=== PATIENT | male | born 1995 | race Caucasian/White ===

== ENCOUNTER → 2023-07-27 | Outpatient (CLI) | payer BC, SELFPAY ==
[2023-07-27 07:30] LABS: Bacteria 0 SEEN /hpf (None Seen); Mucous, Urine 0 SEEN /hpf (<or=2+); Red Blood Cells-Urine 0 SEEN /hpf (0-5); Squamous Epithelial Cells - UA 0 SEEN /hpf (0-5); White Blood Cells 0 SEEN /hpf (0-5)
[2023-07-27 08:30] LABS: Color, Urine Yellow (Yellow); Glucose, Dipstick Normal (Normal); Ketone-Dipstick Negative (Negative); Leukocyte Esterase-Dipstick Negative /ul (Negative); Nitrite-Dipstick Negative (Negative); Occult Blood-Urine Negative /ul (Negative); Protein-Dipstick Negative (Negative); Urine Bilirubin Dipstick Negative (Negative); Urine Clarity Clear (Clear); Urine Urobilinogen Normal (Normal)
[2023-07-27 08:38] LABS: Absolute Lymphocyte Count 2.84 X10^3/uL (0.83-4.51); Absolute Neutrophil Count 3.9 X10^3/uL (2.0-7.7); Basophil# 0.04 X10^3/uL; Basophil% 0.5 % (0-1); Eosinophil# 0.13 X10^3/uL; Eosinophils% 1.7 % (0-5); Hematocrit 45.6 % (40-54); Hemoglobin 14.8 g/dL (13.0-16.5); Lymphocyte # 2.84 X10^3/ul (0.83-4.51); Lymphocyte % 37.7 % (19-41); Mean Corp Hgb Conc 32.5 g/dL (32-36); Mean Corpuscular Hgb 28.4 pg (27.0-32.0); Mean Corpuscular Volume 87.5 fL (80-94); Mean Platelet Vol. 9.8 fl (6.2-12.0); Monocyte# 0.62 X10^3/uL; Monocyte% 8.2 % (0-10); NRBC Flagged by Analyzer 0 % (0-5); Neutrophil # 3.86 X10^3/uL (2.7-7.7); Neutrophil % 51.2 % (47-70); Platelet Count 262 K/mm3 (150-450); RBC Distribution Width CV 13.2 % (11.6-14.6); RBC Distribution Width SD 42.5 fl (35.1-43.9); Red Blood Count 5.21 M/mm3 (4.6-6.2); White Blood Count 7.5 K/mm3 (4.4-11.0)
[2023-07-27 09:23] LABS: ALB/GLOB Ratio 0.7 RATIO (0.9-2.4); AST(SGOT) 30 U/L (15-37); Alanine Aminotransfer ALT/SGPT 75 U/L (16-61); Albumin, Serum 3.3 g/dL (3.2-5.0); Alkaline Phosphatase 54 U/L (45-117); Anion Gap 4 (5-15); BUN 12 mg/dL (7-18); BUN/Creat Ratio 14.5 RATIO (10-20); Calcium,Total 8.9 mg/dL (8.5-10.1); Chloride 106 mmol/L (98-107); Cholesterol 154 mg/dL (200); Creatinine, Serum 0.82 mg/dL (0.70-1.30); EST Glomerular Filtration Rate 117 mL/min (>60); Est Glom Filt Rate - Afr Amer 142 mL/min (>60); Globulin 4.5 g/dL (2.2-4.2); Glucose 96 mg/dL (74-106); High Density Lipoprotein 36 mg/dL; Potassium 3.9 mmol/L (3.5-5.1); Protein, Total 7.8 g/dL (6.4-8.2); Sodium Level 137 mmol/L (136-145); T4 Free Direct 0.74 ng/dL (0.76-1.46); Thyroid Stim Hormone (TSH) 2.67 uIU/mL (0.358-3.74); Triglycerides 122 mg/dL; Very Low Density Lipoprotein 24 mg/dL (5-40)
[2023-07-27 11:30] LABS: Microalbumin,Random Urine 17.3 mg/L (NO RANGE EST.); Microalbumin:Creatinine Ratio 10.8 mg/g CRE (<30 mg/g CRE)
[2023-07-27 12:15] LABS: Hemoglobin A1c 4.9 % (3.8-5.6)
== END | disposition home or self-care (01) ==
LOC: LAB 07:27
PROVIDERS: PCP Nurse Practitioner; Referring Provider Nurse Practitioner; Visit Provider Nurse Practitioner
DX: I10 Essential (primary) hypertension (principal); E66.9 Obesity, unspecified
CPT/HCPCS: 36415; 80053; 80061; 81001; 82043; 82570; 83036; 84439; 84443; 85025

== ENCOUNTER → 2023-08-24 | Outpatient (CLI) | payer BC, SELFPAY ==
[2023-08-24 16:22] LABS: Anion Gap 5 (5-15); BUN 8 mg/dL (7-18); Calcium,Total 9.3 mg/dL (8.5-10.1); Chloride 109 mmol/L (98-107); Creatinine, Serum 0.88 mg/dL (0.70-1.30); EST Glomerular Filtration Rate 108 mL/min (>60); Est Glom Filt Rate - Afr Amer 131 mL/min (>60); Glucose 89 mg/dL (74-106); Potassium 3.7 mmol/L (3.5-5.1); Sodium Level 138 mmol/L (136-145)
== END | disposition home or self-care (01) ==
LOC: BIMLAB 11:01
PROVIDERS: PCP Nurse Practitioner; Referring Provider Nurse Practitioner; Visit Provider Nurse Practitioner
DX: I10 Essential (primary) hypertension (principal)
CPT/HCPCS: 36415; 80048

== ENCOUNTER → 2024-05-29 | Outpatient (CLI) | payer BC, SELFPAY ==
[2024-05-29 12:50] LABS: Absolute Lymphocyte Count 2.21 X10^3/uL (0.83-4.51); Absolute Neutrophil Count 4.6 X10^3/uL (2.0-7.7); Basophil# 0.02 X10^3/uL; Basophil% 0.3 % (0-1); Eosinophil# 0.13 X10^3/uL; Eosinophils% 1.7 % (0-5); Hematocrit 46.7 % (40-54); Hemoglobin 15.4 g/dL (13.0-16.5); Lymphocyte # 2.21 X10^3/ul (0.83-4.51); Mean Corpuscular Hgb 28.7 pg (27.0-32.0); Mean Corpuscular Volume 87.1 fL (80-94); Mean Platelet Vol. 9.9 fl (6.2-12.0); Monocyte# 0.62 X10^3/uL; Monocyte% 8.1 % (0-10); NRBC Flagged by Analyzer 0 % (0-5); Neutrophil # 4.59 X10^3/uL (2.7-7.7); Neutrophil % 60.2 % (47-70); Platelet Count 253 K/mm3 (150-450); RBC Distribution Width CV 13.2 % (11.6-14.6); RBC Distribution Width SD 41.7 fl (35.1-43.9); Red Blood Count 5.36 M/mm3 (4.6-6.2); White Blood Count 7.6 K/mm3 (4.4-11.0)
[2024-05-29 13:11] LABS: ALB/GLOB Ratio 1.1 RATIO (0.9-2.4); AST(SGOT) 30 U/L (<=37); Alanine Aminotransfer ALT/SGPT 51 U/L (<=46); Albumin, Serum 4.1 g/dL (3.5-5.0); Alkaline Phosphatase 61 U/L (40-129); Anion Gap 11 (5-15); BUN 11 mg/dL (4-19); BUN/Creat Ratio 13.7 RATIO (10-20); Calcium,Total 9.5 mg/dL (7.6-11.0); Carbon Dioxide 25.3 mmol/L (21.0-32.0); Chloride 104 mmol/L (98-108); Creatinine, Serum 0.79 mg/dL (0.70-1.20); EST Glomerular Filtration Rate 123 (>60); Globulin 3.8 g/dL (2.2-4.2); Glucose 93 mg/dL (70-99); Potassium 4.5 mmol/L (3.3-5.1); Protein, Total 7.9 g/dL (5.9-8.4); Sodium Level 140 mmol/L (133-145); Total Bilirubin 0.54 mg/dL (0.00-1.30)
[2024-05-29 13:56] LABS: Cholesterol 156 mg/dL (<=200); High Density Lipoprotein 41 mg/dL; Low Density Lipoprotein Calc. 98 mg/dL; Triglycerides 88 mg/dL; Very Low Density Lipoprotein 18 mg/dL (5-40); cholesterol:hdl ratio screen 3.84
== END | disposition home or self-care (01) ==
LOC: BIMLAB 09:26
PROVIDERS: PCP Internal Medicine; Referring Provider Internal Medicine; Visit Provider Internal Medicine
DX: I10 Essential (primary) hypertension (principal)
CPT/HCPCS: 36415; 80053; 80061; 84439; 84443; 85025

== ENCOUNTER → 2024-06-05 | Outpatient (CLI) | payer BC, SELFPAY | END | disposition home or self-care (01) | LOC: SL 10:17 | PROVIDERS: PCP Internal Medicine; Referring Provider Internal Medicine; Visit Provider Internal Medicine | DX: R29.898 Other symptoms and signs involving the musculoskeletal system (principal); G47.10 Hypersomnia, unspecified | CPT/HCPCS: 95806 ==

== ENCOUNTER 2025-02-04 21:20 | Emergency (ER) | payer BC, SELFPAY ==
[2025-02-04 21:21] VITALS: BP 207/105; PULSE 104; RESP 16; TEMP 36.8; O2SAT 100; BMI 51.9
--- NOTE | 2025-02-04 21:39 | EX.ED.DYSGE1 ---
HPI History of Present Illness Chief Complaint: Complaint Informant: patient Onset/Context/Timing Onset: Today Context: Sudden Onset Timing: Continuous Quality: Sharp Location: Urethra and bladder Worsened by: Urination Relieved by: Nothing Narrative Narrative: Patient presents with hematuria and abdominal pain that began today. Patient states it began rather suddenly. Patient states he was urinating and sneezed. Patient states that when he sneezed he felt sharp pain in his suprapubic area. Patient states he noted blood in his urine after that. Patient states he passed a blood clot through his urethra. Patient admits to some dysuria. Patient denies any fevers or chills. Patient denies any nausea or vomiting. Patient denies any back pain. [facility] Medical History Hypertension Family history of ASCVD Chewing tobacco dependence Home Medications Medication Instructions Recorded Last Taken Type ipratropium bromide 21 mcg (0.03 2 spray intranasal BID-TID PRN 06/30/24 Unknown Rx %) nasal spray postnasal drainage #30 mL lisinopril 40 mg tablet 40 mg PO DAILY #30 tabs 09/11/24 Unknown Rx Allergy/AdvReac Type Severity Reaction Status Date / Time No Known Allergies Allergy Verified 02/04/25 21:23 Family History Aunt Anemia Asthma Arthritis History of blood clots Cancer breast, cervical. 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 pets and animals: No sexually active: Yes Smoking Status: Current every day smoker tobacco type: e-cigarettes Tobacco: How many years used: 12 Electronic Cigarette Use: with nicotine alcohol intake: current alcohol intake frequency: a few times a week substance use type: does not use caffeine: Yes (2-3) Type: coffee what type of physical activity do you participate in: walking frequency: daily seatbelt use: always do you feel safe at home: Yes ROS ROS ED Constitutional Constitutional ED: Denies chills or fever(s) Eyes Eyes: Denies blurry vision or change in vision ENT ENT ED: Denies rhinorrhea or sore throat Cardiovascular Cardiovascular: Denies chest pain or palpitations Respiratory/Chest Respiratory/Chest: Denies cough or dyspnea Gastrointestinal Gastrointestinal: Reports abdominal pain; Denies nausea or vomiting Genitourinary Genitourinary ED: Reports dysuria and hematuria Musculoskeletal Musculoskeletal: Denies back pain or neck pain Integumentary Denies abscess or rash Neurologic Neurologic: Denies headache(s) or weakness Allergic/Immunologic Allergic/Immunologic ED: Denies mouth swelling or urticaria EXAM Physical Exam Const Vital Signs: 02/04/25 21:21 02/04/25 23:21 Temperature 98.2 F Temperature Source Oral Pulse Rate 104 H 70 Respiratory Rate 16 14 Blood Pressure 207/105 H 151/84 H Blood Pressure Mean 139 106 Pulse Ox 100 98 Oxygen Delivery Method Room Air Room Air Positive well nourished and well developed Constitutional Narrative: BMI is 51.9 General Appearance ED: well developed and NAD HEENT Reports moist mucous membranes Neck supple and no JVD Resp normal respiratory effort and clear to auscultation bilaterally Cardio regular rate and regular rhythm GI non-distended Palpation: soft and tender suprapubic; Negative for guarding Neuro oriented x3, CN's II-XII intact bilaterally and no sensory deficits noted Sensorium / Orientation: alert Motor Exam: strength 5/5 throughout Psych mental status grossly normal MDM MDM MDM Narrative Medical decision making narrative: Differential diagnosis includes urinary tract infection, hemorrhagic cystitis, ureteral calculus, coagulopathy, and hypertensive urgency. CT scan of the abdomen and pelvis will be obtained to assess for ureteral calculus and pyelonephritis. CBC will be obtained to assess for leukocytosis and anemia. Basic metabolic profile will be obtained to assess for electrolyte abnormality and renal function. PT with INR and PTT will be obtained to assess for coagulopathy. Urinalysis will be obtained to assess for urinary tract infection and hematuria. Lab Data Attestation: I reviewed the patient's lab results. Lab results narrative: CBC was reviewed and was within normal limits. Basic metabolic profile was reviewed and was within normal limits. PT with INR and PTT was reviewed and was within normal limits. Urinalysis was reviewed. Occult blood was 250 with 50-100 red blood cells. Leukocyte Estrace was negative. There are 0-5 white blood cells and 0-5 epithelial cells. There is rare bacteria. Labs: Laboratory Results - last 24 hr 02/04/25 02/04/25 02/04/25 21:35 21:52 22:22 WBC 10.7 RBC 5.25 Hgb 15.3 Hct 45.3 MCV 86.3 MCH 29.1 MCHC 33.8 RDW Std Deviation 40.6 RDW Coeff of Samantha 13.0 Plt Count 277 MPV 9.9 Immature Gran % (Auto) 0.700 Neut % (Auto) 65.3 Lymph % (Auto) 24.9 [place] % (Auto) 7.5 Eos % (Auto) 1.2 Baso % (Auto) 0.4 Absolute Neuts (auto) 7.0 Absolute Lymphs (auto) 2.66 Nucleated RBC % 0 PT Cancelled 13.9 INR Cancelled 1.0 APTT Cancelled 29.1 Sodium 135 Potassium 4.3 Chloride 102 Carbon Dioxide 20.9 L Anion Gap 13 BUN 10 Creatinine 0.94 Estim Creat Clear Calc 183.20 Est GFR (MDRD) Non-Af 111 BUN/Creatinine Ratio 10.5 Glucose 92 Calcium 9.1 Urine Color Yellow Urine Clarity Clear Urine pH 6.0 Ur Specific Virgie 1.010 Urine Protein 30 H Urine Glucose (UA) Normal Urine Ketones Negative Urine Occult Blood 250 H Urine Nitrite Negative Urine Bilirubin Negative Urine Urobilinogen Normal Ur Leukocyte Esterase Negative Urine RBC 50-100 SEEN Urine WBC 0-5 SEEN Ur Squamous Epith Cells 0-5 SEEN Urine Bacteria RARE Urine Mucus 0 SEEN Radiography Diagnostic Testing: Clinical Impression(s) from Imaging Studies Abdomen/Pelvis CT 02/04/25 22:10 IMPRESSION: Urinary bladder minimal mural thickening. Advise clinical and laboratory correlation to exclude the possibility of cystitis. Mild colonic diverticulosis. No diverticulitis. Fatty hepatomegaly. Reading Location: [place] [id number] CT scan of the abdomen and pelvis was obtained. There is some urinary bladder mural thickening. There is mild colonic diverticulosis but there is no diverticulitis. There is hepatomegaly noted. This was interpreted by the radiologist. I also independently reviewed the images. I did not see any evidence of ureteral calculus or free air or free fluid. Treatment and Re-Evaluation :: Patient was given morphine and Zofran. Patient was feeling better on reevaluation. Patient's blood pressure improved to 151/84. Patient was advised of his findings. Patient was instructed to drink plenty of fluids. Patient was instructed to follow-up with his primary care physician in 5 to 7 days. Patient was also given number for urology for follow-up if his hematuria does not clear up. Patient was instructed to use Tylenol as needed for pain. Patient understood and was agreeable with the plan. All questions were answered. Discharge Plan Triage Chief Complaint: Complaint ED Provider: Pan Lay Dx/Rx/DC Orders Clinical Impression: Hematuria, Hypertension Instructions: ED Hematuria Prescriptions: No Action ipratropium bromide 21 mcg (0.03 %) spray,non-aerosol 2 spray intranasal BID-TID PRN (Reason: postnasal drainage) Qty: 30 0RF Rx Instructions: administer into each nostril lisinopril 40 mg tablet 40 mg PO DAILY Qty: 30 1RF Primary Care Provider: Lilly Cordero Referrals: Lilly Cordero MD [Primary Care Provider, Internal Medicine] - 5-7 Days Harry Srinivasan MD [Med Staff - Active Staff, Urology] - 3-5 Days if not improving Print Language: Bulgarian Disposition Disposition: Home, Self Care
[2025-02-04 21:53] LABS: Mucous, Urine 0 SEEN /hpf (<or=2+)
[2025-02-04 21:55] LABS: Color, Urine Yellow (Yellow); Glucose, Dipstick Normal (Normal); Ketone-Dipstick Negative (Negative); Leukocyte Esterase-Dipstick Negative /ul (Negative); Nitrite-Dipstick Negative (Negative); Occult Blood-Urine 250 /ul (Negative); Protein-Dipstick 30 mg/dl (Negative); Specific Gravity, Urine 1.010 (1.002-1.030); Urine Bilirubin Dipstick Negative (Negative)
[2025-02-04 21:57] LABS: Hematocrit 45.3 % (40-54); Hemoglobin 15.3 g/dL (13.0-16.5); Immature Granulocytes Count 0.070 X10^3/uL (0.0-0.0); Mean Corp Hgb Conc 33.8 g/dL (32-36); Mean Corpuscular Volume 86.3 fL (80-94); Mean Platelet Vol. 9.9 fl (6.2-12.0); NRBC Flagged by Analyzer 0 % (0-5); Platelet Count 277 K/mm3 (150-450); RBC Distribution Width CV 13.0 % (11.6-14.6); RBC Distribution Width SD 40.6 fl (35.1-43.9); Red Blood Count 5.25 M/mm3 (4.6-6.2); White Blood Count 10.7 K/mm3 (4.4-11.0)
--- OUTSIDE RECORDS SUMMARY | 2025-02-04 22:01 | XMS RPT_ITS | CCD ---
Author Organization [facility] Care Team Providers Care Highway Truck Driver Name Role Phone PHYSICIAN, NONE Primary Care Physician Unavailab delfina Sharp CREATIVE SERVICES PRODUCER-C, Lea Referring Provider Gil CHAO, Dr. Carr Attending Provider Gil CHAO, Dr. Carr Primary Care Provider [phone] Gil CHAO, Dr. Carr Referring Provider Elias Stringer Attending Provider NURSE, BIM Attending Provider Unavailable Marla Odonnell Attending Unavail able Ferullo, Lea Referring Unavailable Ferullo, Lea Primary Care Unavailable Gil, Lilly Primary Care Unavailable Gil, Lilly Attending Unavailable [place], Lilly Referring Unavailable [place], Lilly Attending Unavailable [place], Lilly Referring Unavailable Gil, Lilly Primary Care Unavailable Ferullo, Lea Referring Unavailable [place], Lilly Attending Unavailable [place], Lilly Referring Unavailable [place], Lilly Primary Care Unavailable Elias Stringer Attending Unavailable Gil, Lilly Attending Unavailable [place], Lilly Referring Unavailable [place], Lilly Primary Care Unavailable Gil, Lilly Attending Unavailable [place], Lilly Referring Unavailable [place], Lilly Primary Care Unavailable Ferullo, Lea Primary Care Unavailable Ferullo, Lea Attending Unavailable Ferullo, Lea Referring Unavailable Medications Current Medications Medication Drug Class(es) Dates Sig (Normalized) Sig (Original) hydroCHLOROthiazide 25 mg / lisinopril 20 mg oral tablet (1 source) Thiazide Diuretic, Angiotensin Converting Enzyme Inhibitor Start: 06-20-2021 take 1 tablet by mouth once daily hydrochlorothiaz mindy-lisinopril 25 mg-20 mg oral tablet Dose = 1 tab(s), Oral, Daily Start Date: 06/20/21 Status: Ordered Ipratropium [place] 21 mcg (0.03 %) spray,non-aerosol (2 sources) Start: 06-30-2024 Ipratropium [place] 21 mcg (0.03 %) spray,non-aeroso l Active 2 NMA INTRANASAL 2 to 3 times per day as needed for postnasal drainage June 30, 2024 12:00am administer into each nostril lisinopril 30 mg oral tablet (12 sources) Angiotensin Converting Enzyme Inhibitor Start: 08-24-2023 End: 05-29-2024 take 1 tablet by mouth once daily Lisinopril 30 mg tablet Active 30 mg PO DAILY May 29, 2024 9:11am Start: 07-20-2023 End: 08-24-2023 take 1 tablet by mouth once daily Lisinopril 20 mg tablet Discontinued 20 mg PO DAILY July 20, 2023 12:00am August 24, 2023 10:51am Completed/Discontinued Medications Medication Drug Class(es) Dates Sig (Normalized) Sig (Original) amoxicillin 875 mg oral tablet (4 sources) Penicillin-class Antibacterial Start: 12-18-2023 End: 12-28-2023 take 1 tablet by mouth every twelve hours Amoxicillin 875 mg tablet Discontinued 875 mg PO Q12H 08 01December 18, 2023 12:00am December 27, 2023 12:00am December 28, 2023 12:08am amoxicillin 875 mg / clavulanate 125 mg oral tablet (2 sources) Penicillin-class Antibacterial Start: 06-30-2024 End: 07-10-2024 Amoxicillin-Pot Clavulanate 875-125 mg tablet Discontinued 1 {tbl} PO Q12H 20 June 30, 2024 12:00am July 09, 2024 12:00am July 10, 2024 12:06am Problems Active Problems Problem Classification Problem Date Documented Da te Episodic/Chronic Administrative/social admission (8 sources) First encounter by subject; Translations: [Persons encountering health services in other specified circumstances] 05-29-2024 Episodic Essential hypertension (12 sources) Essential hypertension; Translations: [Essential (primary) hypertension] Onset: 06-20-2021 Chronic Other connective tissue disease (2 sources) Disease suspected; Translations: [Other symptoms and signs involving the nervous system] 05-29-2024 Episodic Other connective tissue disease (2 sources) Suspected respiratory disease; Translations: [Other symptoms and signs involving the nervous system] 05-29-2024 Episodic Other liver diseases (1 source) ALT (SGPT) level raised; Translations: [Elevated ALT measurement] 09-05-2024 Episodic Other nutritional; endocrine; and metabolic disorders (4 sources) Obesity; Translations: [Obesity, unspecified] 07-20-2023 Chronic Other nutritional; endocrine; and metabolic disorders (6 sources) Body mass index 40+ - severely obese; Translations: [Morbid (severe) obesity due to excess calories] 05-29-2024 Chronic Other upper respiratory infections (7 sources) Acute sinusitis; Translations: [Acute sinusitis, unspecified] Onset: 06-30-2024 05-24-2024 Episodic Otitis media and related conditions (4 sources) Acute bilateral otitis media ; Translations: [Otitis media, unspecified, bilateral] 05-24-2024 Episodic Residual codes; unclassified (2 sources) Obstructive sleep apnea syndrome; Translations: [Obstructive sleep apnea (adult) (pediatric)] 09-05-2024 Chronic Residual codes; unclassified (1 source) Hypersomnia, unspecified; Translations: [Hypersomnia, unspecified] Onset: 05-29-2024 Chronic Residual codes; unclassified (4 sources) FH: Atherosclerosis; Translations: [Family history of ischemic heart disease and other diseases of the circulatory system] 05-24-2024 Episodic Residual codes; unclassified (4 sources) Medication refused; Translations: [Immunization not carried out because of patient refusal] 05-29-2024 Episodic Residual codes; unclassified (6 sources) Electronic cigarette user; Translations: [Other specified health status] 05-29-2024 Episodic Substance-related disorders (4 sources) Tobacco dependence caused by chewing tobacco; Translations: [Nicotine dependence, chewing tobacco, uncomplicated] 05-29-2024 Chronic Past or Other Problems Problem Classification Problem Date Documented Date Episodic/Chronic Other connective tissue disease (1 source) Other symptoms and signs involving the musculoskeletal system; Translations: [Other symptoms and signs involving the musculoskeletal system] Onset: 06-14-2024 Episodic Other connective tissue disease (1 source) Other symptoms and signs involving the nervous system; Translations: [Other symptoms and signs involving the nervous system] Onset: 05-29-2024 Episodic Results Test Name Value Interpretation Reference Range Facility Office Visit Reporton 2024 Office Visit Report [facility] [place] [address] OFFICE VISIT Date of Service: 09/11/24 MR#: [id number] Acct: [id number] Patient: RUDY HOWELL Rep #: [id number] : 1995 Provider: SANDIP NURSE Age/Sex: 29/M Location: [facility] Status: Signed Intake Vital Signs 09/05/24 07:27 09/11/24 09:45 09/11/24 09:55 Height 5 ft 11 in Weight: 369 lb BMI 51.4 BP 148/94 H 152/102 H 144/96 H Blood Pressure Location Lt brachial Lt brachial Lt brachial Position Sitting Sitting Sitting Respiration 18 Pulse 100 Pulse Source Monitor Temp 97.7 F L Temp Source Temporal Pulse Oximetry (%) 98 Oxygen Delivery Method room air Intake Visit Reasons: BP CHECK Chief Complaint: face/ear pain, drainage, chills Allergies No Known Allergies Allergy (Verified 09/05/24 07:21) Nurse's Note: Pt sat for 5 minutes before being called back. Bp 152/102. Pt denies chest pain, palptations,headaches, SOB, or vision changes. Pt has not been taking at home but states he has been eating right and taking meds as prescribed. Pt sat for 5 more minutes upon recheck 144/96 Assessment and Plan Assessment and Plan (1) Hypertension: Status: Chronic Qualifiers: Hypertension type: primary hypertension Qualified Code(s): I10 - Essential (primary) hypertension Plan: Blood pressure remains high. Will increase lisinopril to 40mg daily. He was in agreement. 09/11/24 1213 Date Lilly Silvaignreji Signature: Date (if applicable) CC: [facility] Office Vis cordelia 09-04-2024 Internal Medicine Office Visit [facility] [address] [place] [address] [place] [address] OFFICE VISIT Date of Service: 09/05/24 MR#: [id number] Acct: [id number] Name: RUDY HOWELL Rep #: [id number] : 1995 Provider: Dr. Lilly grove MD Age/Sex: 29/M Location: [facility] [place] [facility] Status: Signed Intake Vital Signs 05/29/24 08:56 09/04/24 13:19 09/05/24 07:27 09/05/24 08:03 Height 5 ft 11 in 5 ft 11 in 5 ft 11 in Weight: 369 lb BMI 51.4 BP 148/94 H 166/102 H Blood Pressure Location Lt brachial Position Sitting Respiration 18 Pulse 100 Pulse Source Monitor Temp 97.7 F L Temp Source Temporal Pulse Oximetry (%) 98 Oxygen Delivery Method room air Intake Visit Reasons: CPAP FOLLOW UP Utility Mechanic Required: No Is patient in pain?: No Allergies No Known Allergies Allergy (Verified 09/05/24 07:21) Medications ???Medication ???Instructions ???Recorded ???Confirmed ???Type lisinopril 30 mg tablet 30 mg PO DAILY #90 tabs 05/29/24 0 09/05/24 Rx ipratropium bromide 21 mcg (0.03 2 spray intranasal BID-TID PRN 02/1309/05/24 Rx %) nasal spray postnasal drainage #30 mL Nurse's Note: Pt here for cpap compliance, pt states since getting it he is sleeping 8 hours on average and feels rested. Pt uncertain of settings but states he is getting the best sleep he has had in a long time. [facility] Medical History Chewing tobacco dependence Family history of ASCVD Surgical History No pertinent past surgical history Family History Aunt Anemia Asthma Arthritis History of blood clots Cancer breast, cervical. 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 He is up to date on his routine blood work. He is not due for any screening. He previously declined any immunizations. He does smoke e-cigarettes and doesn't want to quit at this time. He reports, however, that he continues to cut back. He does not need refills. He reports he is eating healthy and staying active. He doesn't check his blood pressure at home. He has been taking his medication as prescribed without problems. He does try to monitor his salt and caffeine intake. Since he was last seen, he completed a sleep study, which confirmed sleep apnea. He reports that he got his CPAP machine. He reports since using it, he has been getting the best sleep he has had in years. He denies any problems with wearing the mask, stating it did take a little time to get used to it. He does wear it all night. He has no questions or concerns at this time. ROS Const Constitutional: No body ache, chills, excessive sweating, fatigue, fever(s), frequent falls, headache(s), snoring, weakness, weight change, sleep problems or change in appetite Eyes Eyes: No blurry vision, change in vision, eye pain or Light sensitivity ENT ENT: No abnormal hearing, ear or mastoid pain, tinnitus, nasal congestion, headache(s), neck pain or sore throat Resp Respiratory: No cough, shortness of breath, snoring or wheezing Cardio Cardiology: No chest pain at rest, chest pain with exertion, excessive sweating, shortness of breath, dyspnea on exertion, lightheadedness, orthopnea, palpitations or other (no leg swelling) Gastro GI: No abdominal pain, change in bowel habits, constipation, cramping, diarrhea, nausea/dyspepsia or vomiting Genitourinary Male: No difficulty urinating, burning urination, painful urination, urinary incontinence or urinary frequency Musc Musculoskeletal: No abnormal gait, joint pain, back pain, limited range of motion, neck pain, numbness or tingling Skin Sk (more content not included)... [facility] Visit Reporton 0 06-30-2024 Urgent Care Visit Report [facility] [address] [place] [address] OFFICE VISIT Date of Service: 06/30/24 MR#: [id number] Acct: [id number] Name: RUDY HOWELL Rep #: [id number] : 1995 Provider: ADELINA Torres Age/Sex: 28/M Location: [facility] [place] Status: Signed Intake Vital Signs 05/29/24 08:56 06/30/24 16:54 Height 5 ft 11 in Weight: 366 lb BMI 51.0 BP 130/82 H 166/96 H Blood Pressure Location Lt brachial Lt brachial Position Sitting Sitting Respiration 14 17 Pulse 91 103 H Pulse Source Monitor NIBP Temp 98 F 99.0 F Temp Source Temporal Oral Pulse Oximetry (%) 99 96 Oxygen Delivery Method room air room air Intake Visit Reasons: SINUS PRESURE/BILAT EAR PAIN Chief Complaint: face/ear pain, drainage, chills Utility Mechanic Required: No Is patient in pain?: Yes Allergies No Known Allergies Allergy (Verified 06/30/24 16:55) Medications ???Medication ???Instructions ???Recorded ???Confirmed ???Type lisinopril 30 mg tablet 30 mg PO DAILY #90 tabs 05/29/24 0 06/30/24 Rx amoxicillin 875 mg-potassium 1 tab PO Q12H 10 days #20 tabs 02/1306/30/24 Rx clavulanate 125 mg tablet ipratropium bromide 21 mcg (0.03 2 spray intranasal BID-TID PRN 02/1306/30/24 Rx %) nasal spray postnasal drainage #30 mL Have you fallen in the past year?: No Nurse's Note: face/ear pain, drainage, chills x 5 days. denies fever, cough, BA PFSH Medical History (Updated 05/29/24 @ 09:[address] Lilly Cordero MD) Chewing tobacco dependence Family history of ASCVD Surgical History (Updated 05/29/24 @ 09:[address] Lilly Cordero MD) No pertinent past surgical history Family History (Updated 05/29/24 @ 09:[address] Lilly Cordero MD) Aunt Anemia Asthma Arthritis History of blood clots Cancer breast, cervical. Diabetes Hypertension Kidney disease Liver disease Osteoporosis Mother Arthritis History of blood clots Hypertension Diabetes Autoimmune disease Grandmother Cancer breast Myocardial infarction 60 Father Myocardial infarction, Onset Age: 50 x2 Grandfather Myocardial infarction Social History (Updated 05/29/24 @ 09:[address] 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 pets and animals: No sexually active: Yes Smoking Status: Current every day smoker tobacco type: e-cigarettes Tobacco: How many years used: 12 Electronic Cigarette Use: with nicotine alcohol intake: current alcohol intake frequency: a few times a week substance use type: does not use caffeine: Yes (2-3) Type: coffee what type of physical activity do you participate in: walking frequency: daily seatbelt use: always do you feel safe at home: Yes HPI HPI Chief Complaint: face/ear pain, drainage, chills Details: RUDY HOWELL, is a 28 M who presents to the office today for complaint of sinus congestion/pressure and pain as well as left ear pain. Patient states that sinus congestion and pressure have been ongoing for the past week with new onset of left ear pain last night. He denies fever, chills, sweats. No nausea, vomiting or diarrhea. No hemoptysis, shortness of breath or difficulty breathing. No loss of taste or smell. No other associated symptoms or alleviating/aggravatin g factors. ROS Const Constitutional: Positive for other (ROS negative x 6 except what is described above) Exam Const General: cooperative and healthy appearing [facility] Head: normal to inspection Ears: hearing grossly normal bilaterally, TM's normal bilaterally and EAC's normal Nose: nasal discharge purulent Face and sinus: sinus tenderness frontal and maxillary Mouth: oral mucosae normal Throat: abnormal tonsil bilaterally erythema and hypertrophy 1+ and postnasal drainage Resp Effort Inspection: normal respiratory effort Auscultation: Bilateral: Clear to Auscultation Cardio Palpation: normal PMI Rate: regular rate Rhythm: regular rhythm Neuro General: patient alert and CN's II-XI intact bilaterally Psych Appearance: grossly normal Mental Status: mental status grossly normal Coding Level of Care Code Off vis,new,level 3 Diagnoses Acute sinus infection J01.90 Assessment and Plan Assessment and Plan (1) Acute sinus infection: Status: Resolved Plan: Augmentin and Atrovent as prescribed today. Encouraged to get plenty of rest, drink lots of clear liquids, and use Tylenol or Ibuprofen (unless contraindicated) for fever and comfort. Patient also educated on other symptomatic management techniques. To be seen in 7-10 days if no improvement; sooner if worsening of symptoms. Patient advised of potential red flags and wh (more content not included)... [facility] Absolute lymphocyte countOrd ered By: Lilly Cordero on 05-29-2024 Lymphocytes Auto (Unsp spec) [#/Vol] 2.21 10*3/uL 0.83-4.51 [facility] Absolute neutrophil countOrd ered By: Lilly Cordero on 05-29-2024 Neutrophils (Bld) [#/Vol] 4.6 10*3/uL 2.0-7.7 [facility] Anion gap in Serum or Plasma Ordered By: Lilly Cordero on 05-29-2024 Anion gap [Moles/Vol] 11 mmol/L 5-15 [facility] Automated lymphocyte count a s percentage of total leukocytesOrdered By: Lilly Cordero on 05-29-2024 Lymphocytes/100 WBC Auto (Unsp spec) 29.0 % 19-41 [facility] BUN/creatinine ratioOrdered By: Lilly Cordero on 05-29-2024 Urea nitrogen/Creatinine [Mass ratio] 13.7 mg/mg 10-20 [facility] Basophil percentageOrdered B y: Lilly Cordero on 05-29-2024 Basophils/100 WBC (Bld) 0.3 % 0-1 [facility] Bilirubin, totalOrdered By: Lillyefrain Cordero on 05-29-2024 Bilirubin [Mass/Vol] 0.54 mg/dL 0.00-1.30 [facility] CBC W/Diff, Automatedon 05-20-2024 Absolute Lymph 2.21 X10 3/uL Normal 0.83-4.51 [facility] Comment on above: Performed By: #### L 500.4100, L500.4050, L501.9520, L506.0400, L100.0100 #### [facility] [address] [place], [address] Absolute Neut 4.6 X10 3/uL Normal 2.0-7.7 [facility] Comment on above: Performed By: #### L 500.4100, L500.4050, L501.9520, L506.0400, L100.0100 #### [facility] [address] [place], [address] Basophils/100 WBC (Bld) 0.3 % Normal 0-1 [facility] Comment on above: Performed By: #### L 500.4100, L500.4050, L501.9520, L506.0400, L100.0100 #### [facility] [address] [place], [address] Eosinophils/100 WBC (Bld) 1.7 % Normal 0-5 [facility] Comment on above: Performed By: #### L 500.4100, L500.4050, L501.9520, L506.0400, L100.0100 #### [facility] [address] [place], [address] Erythrocyte distribution width (RBC) [Ratio] 13.2 % Normal 11.6-14.6 [facility] Comment on above: Performed By: #### L 500.4100, L500.4050, L501.9520, L506.0400, L100.0100 #### [facility] [address] [place], [address] Hematocrit (Bld) [Volume fraction] 46.7 % Normal 40-54 [facility] Comment on above: Performed By: #### L 500.4100, L500.4050, L501.9520, L506.0400, L100.0100 #### [facility] [address] [place], [address] Hemoglobin (Bld) [Mass/Vol] 15.4 g/dL Normal 13.0-16.5 [facility] Comment on above: Performed By: #### L 500.4100, L500.4050, L501.9520, L506.0400, L100.0100 #### [facility] [address] [place], [address] IG% 0.700 Normal 0.0-0.9 [facility] Comment on above: Result Comment: IG% - Immature Granulocytes (promyelocytes, myelocytes and metamyelocytes) > 1% indicates that a LEFT SHIFT is Present. Performed By: #### L 500.4100, L500.4050, L501.9520, L506.0400, L100.0100 #### [facility] [address] [place], [address] Lymphocytes/100 WBC (Bld) 29.0 % Normal 19-41 [facility] Comment on above: Performed By: #### L 500.4100, L500.4050, L501.9520, L506.0400, L100.0100 #### [facility] [address] [place], [address] MCH (RBC) [Entitic mass] 28.7 pg Normal 27.0-32.0 [facility] Comment on above: Performed By: #### L 500.4100, L500.4050, L501.9520, L506.0400, L100.0100 #### [facility] [address] [place], [address] MCHC (RBC) [Mass/Vol] 33.0 g/dL Normal 32-36 [facility] Comment on above: Performed By: #### L 500.4100, L500.4050, L501.9520, L506.0400, L100.0100 #### [facility] [address] [place], [address] MCV (RBC) [Entitic vol] 87.1 fL Normal 80-94 [facility] Comment on above: Performed By: #### L 500.4100, L500.4050, L501.9520, L506.0400, L100.0100 #### [facility] [address] [place], [address] Monocytes/100 WBC (Bld) 8.1 % Normal 0-10 [facility] Comment on above: Performed By: #### L 500.4100, L500.4050, L501.9520, L506.0400, L100.0100 #### [facility] [address] [place], [address] Neutrophils/100 WBC (Bld) 60.2 % Normal 47-70 [facility] Comment on above: Performed By: #### L 500.4100, L500.4050, L501.9520, L506.0400, L100.0100 #### [facility] [address] [place], [address] Nucleated RBC (Bld) [#/Vol] 0 10*3/uL Normal 0-5 [facility] Comment on above: Performed By: #### L 500.4100, L500.4050, L501.9520, L506.0400, L100.0100 #### [facility] [address] [place], [address] Platelet mean volume (Bld) [Entitic vol] 9.9 fL Normal 6.2-12.0 [facility] Comment on above: Performed By: #### L 500.4100, L500.4050, L501.9520, L506.0400, L100.0100 #### [facility] [address] [place], [address] Platelets (Bld) [#/Vol] 253 10*3/uL Normal 150-450 [facility] Comment on above: Performed By: #### L 500.4100, L500.4050, L501.9520, L506.0400, L100.0100 #### [facility] [address] [place], [address] RBC (Bld) [#/Vol] 5.36 10*6/uL Normal 4.6-6.2 [facility] Comment on above: Performed By: #### L 500.4100, L500.4050, L501.9520, L506.0400, L100.0100 #### [facility] [address] [place], [address] RDW SD 41.7 fl Normal 35.1-43.9 [facility] Comment on above: Performed By: #### L 500.4100, L500.4050, L501.9520, L506.0400, L100.0100 #### [facility] [address] [place], [address] WBC (Bld) [#/Vol] 7.6 10*3/uL Normal 4.4-11.0 [facility] Comment on above: Performed By: #### L 500.4100, L500.4050, L501.9520, L506.0400, L100.0100 #### [facility] [address] [place], [address] Calculated very low density lipoprotein (VLDL) cholesterol measurementOrdered By: Lilly Cordero on 05-29-2024 Calculated very low density lipoprotein (VLDL) cholesterol measurement 18 mg/dL 5-40 [facility] VLDL Cholesterol 18 mg/dL 5-40 [facility] Carbon dioxide, total [Moles /volume] in Central venous bloodOrdered By: Lilly Cordero on 05-29-2024 CO2 [Moles/Vol] 25.3 mmol/L 21.0-32.0 [facility] Chloride assayOrdered By: Aditya Cordero on 05-29-2024 Chloride [Moles/Vol] 104 mmol/L 98-108 [facility] Comprehensive Metabolic Prof ilon 05-29-2024 Albumin [Mass/Vol] 4.1 g/dL Normal 3.5-5.0 [facility] Comment on above: Performed By: #### L 500.4100, L500.4050, L501.9520, L506.0400, L100.0100 #### [facility] [address] [place], [address] Albumin/Globulin [Mass ratio] 1.1 {ratio} Normal 0.9-2.4 [facility] Comment on above: Performed By: #### L 500.4100, L500.4050, L501.9520, L506.0400, L100.0100 #### [facility] [address] [place], [address] ALK PHOS 61 U/L Normal 40-129 [facility] Comment on above: Performed By: #### L 500.4100, L500.4050, L501.9520, L506.0400, L100.0100 #### [facility] [address] [place], [address] ALT [Catalytic activity/Vol] 51 U/L High <=46 [facility] Comment on above: Performed By: #### L 500.4100, L500.4050, L501.9520, L506.0400, L100.0100 #### [facility] [address] [place], [address] AST [Catalytic activity/Vol] 30 U/L Normal <=37 [facility] Comment on above: Performed By: #### L 500.4100, L500.4050, L501.9520, L506.0400, L100.0100 #### [facility] [address] [place], [address] Bilirubin [Mass/Vol] 0.54 mg/dL Normal 0.00-1.30 [facility] Comment on above: Performed By: #### L 500.4100, L500.4050, L501.9520, L506.0400, L100.0100 #### [facility] [address] [place], [address] BUN/CRE 13.7 RATIO Normal 10-20 [facility] Comment on above: Performed By: #### L 500.4100, L500.4050, L501.9520, L506.0400, L100.0100 #### [facility] [address] [place], [address] Calcium [Mass/Vol] 9.5 mg/dL Normal 7.6-11.0 [facility] Comment on above: Performed By: #### L 500.4100, L500.4050, L501.9520, L506.0400, L100.0100 #### [facility] [address] [place], [address] Chloride [Moles/Vol] 104 mmol/L Normal 98-108 [facility] Comment on above: Performed By: #### L 500.4100, L500.4050, L501.9520, L506.0400, L100.0100 #### [facility] [address] [place], [address] CO2 [Moles/Vol] 25.3 mmol/L Normal 21.0-32.0 [facility] Comment on above: Performed By: #### L 500.4100, L500.4050, L501.9520, L506.0400, L100.0100 #### [facility] [address] [place], [address] Creatinine [Mass/Vol] 0.79 mg/dL Normal 0.70-1.20 [facility] Comment on above: Performed By: #### L 500.4100, L500.4050, L501.9520, L506.0400, L100.0100 #### [facility] [address] [place], [address] GAP 11 Normal 5-15 [facility] Comment on above: Performed By: #### L 500.4100, L500.4050, L501.9520, L506.0400, L100.0100 #### [facility] [address] [place], [address] GFR/1.73 sq M.predicted among non-blacks MDRD (S/P/Bld) [Vol rate/Area] 123 mL/min/{1.73_m2} Normal >60 [facility] Comment on above: Result Comment: mL/m in/1.73m2 CKD-EPI Creatinine Equation (2020) Performed By: #### L 500.4100, L500.4050, L501.9520, L506.0400, L100.0100 #### [facility] [address] [place], [address] Globulin (S) [Mass/Vol] 3.8 g/dL Normal 2.2-4.2 [facility] Comment on above: Performed By: #### L 500.4100, L500.4050, L501.9520, L506.0400, L100.0100 #### [facility] [address] [place], [address] Glucose [Mass/Vol] 93 mg/dL Normal 70-99 [facility] Comment on above: Performed By: #### L 500.4100, L500.4050, L501.9520, L506.0400, L100.0100 #### [facility] [address] [place], [address] Potassium [Moles/Vol] 4.5 mmol/L Normal 3.3-5.1 [facility] Comment on above: Performed By: #### L 500.4100, L500.4050, L501.9520, L506.0400, L100.0100 #### [facility] [address] [place], [address] Sodium [Moles/Vol] 140 mmol/L Normal 133-145 [facility] Comment on above: Performed By: #### L 500.4100, L500.4050, L501.9520, L506.0400, L100.0100 #### [facility] [address] [place], [address] T PROT 7.9 g/dL Normal 5.9-8.4 [facility] Comment on above: Performed By: #### L 500.4100, L500.4050, L501.9520, L506.0400, L100.0100 #### [facility] [address] [place], [address] Urea nitrogen [Mass/Vol] 11 mg/dL Normal 4-19 [facility] Comment on above: Performed By: #### L 500.4100, L500.4050, L501.9520, L506.0400, L100.0100 #### [facility] [address] [place], [address] Eosinophil percentageOrdered By: Lilly Cordero on 05-29-2024 Eosinophils/100 WBC (Bld) 1.7 % 0-5 [facility] Erythrocyte distribution wid th ratioOrdered By: Lilly Cordero on 05-29-2024 Erythrocyte distribution width (RBC) [Ratio] 13.2 % 11.6-14.6 [facility] Erythrocyte distribution wid th standard deviationOrdered By: Lilly Cordero on 05-29-2024 Erythrocyte distribution width (RBC) [Entitic vol] 41.7 fL 35.1-43.9 [facility] Erythrocyte distribution width (RBC) [Ratio] 41.7 fl 35.1-43.9 [facility] GFR/1.73 sq M.predicted sammie g non-blacks MDRD (S/P/Bld) [Vol rate/Area]Ordered By: Lilly Cordero on 05-29-2024 Estimated GFR (MDRD) Non-Af Amer 123 >60 [facility] Comment on above: mL/min/1.73m2 CKD-EP I Creatinine Equation (2020) Glomerular filtration rate ( GFR) estimation/1.73 sq m using serum, plasma, or whole bOrdered By: Lilly Cordero on 05-29-2024 GFR/1.73 sq M.predicted among non-blacks MDRD (S/P/Bld) [Vol rate/Area] 123 mL/min/{1.73_m2} >60 [facility] Comment on above: mL/min/1.73m2 CKD-EP I Creatinine Equation (2020) Hematocrit Auto (Bld) [Volum e fraction]Ordered By: Lilly Cordero on 05-29-2024 Hematocrit (Bld) [Volume fraction] 46.7 % 40-54 [facility] Hemoglobin measurementOrdere d By: Lilly Cordero on 05-29-2024 Hemoglobin (Bld) [Mass/Vol] 15.4 g/dL 13.0-16.5 [facility] Immature granulocytes/100 WB C Auto (Bld)Ordered By: iLlly Cordero on 05-29-2024 Immature granulocytes/100 WBC (Bld) 0.700 % 0.0-0.9 [place] [facility] Comment on above: IG% - Immature Granu locytes (promyelocytes, myelocytes and metamyelocytes) > 1% indicates that a LEFT SHIFT is Present. LDL calc ser/plasOrdered By: Lilly Codrero on 05-29-2024 Cholesterol in LDL [Mass/Vol] 98 mg/dL [facility] Comment on above: Skssxhiedl=708-679 m g/dL & Higher Orwa=830 mg/dL or greater LDL Cholesterol, Calculated 98 mg/dL [facility] Comment on above: Myezkjxepa=769-097 m g/dL & Higher Tvde=256 mg/dL or greater Laboratory - Chemistry and C hemistry - challengeOrdered By: Lilly Cordero on 05-29-2024 AST [Catalytic activity/Vol] 30 U/L <38 [facility] Lipid Profileon 05-29-2024 CHOL:HDL 3.84 Normal [facility] Comment on above: Performed By: #### L 500.4100, L500.4050, L501.9520, L506.0400, L100.0100 #### [facility] [address] [place], [address] Cholesterol [Mass/Vol] 156 mg/dL Normal <=200 [facility] Comment on above: Result Comment: Chol esterol level, Desirable <200 mg/dL Borderline high cholesterol 200-239 mg/dL High cholesterol >=240 mg/dL Recommendations of the NCEP Adult Treatment Panel for the following risk-cutoff thresholds for the [place] population. Performed By: #### L 500.4100, L500.4050, L501.9520, L506.0400, L100.0100 #### [facility] [address] [place], [address] Cholesterol in HDL [Mass/Vol] 41 mg/dL Normal [facility] Comment on above: Result Comment: Gretchen onal Cholesterol Education Program (NCEP) guidelines: <40 mg/dL: Low HDL-cholesterol (major risk factor for CHD) >= 60 mg/dL: High HDL-cholesterol (negative risk factor for CHD) HDL-cholesterol is affected by a number of factors, e.g. smoking, exercise, hormones, sex and age. Performed By: #### L 500.4100, L500.4050, L501.9520, L506.0400, L100.0100 #### [facility] [address] [place], [address] Cholesterol in LDL [Mass/Vol] 98 mg/dL Normal [facility] Comment on above: Result Comment: Bord pmmdak=795-283 mg/dL Higher Utwd=862 mg/dL or greater Performed By: #### L 500.4100, L500.4050, L501.9520, L506.0400, L100.0100 #### [facility] [address] [place], [address] Cholesterol in VLDL [Mass/Vol] 18 mg/dL Normal 5-40 [facility] Comment on above: Performed By: #### L 500.4100, L500.4050, L501.9520, L506.0400, L100.0100 #### [facility] [address] [place], [address] Triglyceride [Mass/Vol] 88 mg/dL Normal [facility] Comment on above: Result Comment: The drugs N-Acetylcysteine and Metamizole may falsely depress this assay. Normal range: <150 mg/dL Borderline High: 150-199 mg/dL High: 200-499 mg/dL Very High: >500 mg/dL Performed By: #### L 500.4100, L500.4050, L501.9520, L506.0400, L100.0100 #### [facility] [address] [place], [address] Lymphocytes Auto (Unsp spec) [#/Vol]Ordered By: Lilly Cordero on 05-29-2024 Lymphocytes (Bld) [#/Vol] 2.21 10*3/uL 0.83-4.51 [facility] Lymphocytes/100 WBC Auto (Un sp spec)Ordered By: Lilly Cordero on 05-29-2024 Lymphocytes/100 WBC (Bld) 29.0 % 19-41 [facility] MCV (mean corpuscular volume ) determinationOrdered By: Lilly Cordero on 05-29-2024 MCV (RBC) [Entitic vol] 87.1 fL 80-94 [facility] Mean corpuscular hemoglobin (MCH) determinationOrdered By: Lilly Cordero on 05-29-2024 MCH (RBC) [Entitic mass] 28.7 pg 27.0-32.0 [facility] Mean corpuscular hemoglobin concentration (MCHC) determinationOrdered By: Lilly Cordero on 05-29-2024 MCHC (RBC) [Mass/Vol] 33.0 g/dL 32-36 [facility] Mean platelet volume determi nationOrdered By: Lilly Cordero on 05-29-2024 Platelet mean volume (Bld) [Entitic vol] 9.9 fL 6.2-12.0 [facility] Monocyte percentageOrdered B y: Lilly Cordero on 05-29-2024 Monocytes/100 WBC (Bld) 8.1 % 0-10 [facility] Neutrophil percentageOrdered By: Lilly Cordero on 05-29-2024 Neutrophils/100 WBC (Bld) 60.2 % 47-70 [facility] Nucleated red blood cell per centageOrdered By: Lilly Cordero on 05-29-2024 Nucleated RBC/100 WBC (Bld) [Ratio] 0 % 0-5 [facility] Platelet countOrdered By: Aditya Cordero on 05-29-2024 Platelets (Bld) [#/Vol] 253 10*3/uL 150-450 [facility] Potassium (Unsp spec) [Mass/ Vol]Ordered By: Lilly oCrdero on 05-29-2024 Potassium [Moles/Vol] 4.5 mmol/L 3.3-5.1 [facility] Potassium measurement (mass/ volume)Ordered By: Lilly Cordero on 05-29-2024 Potassium (Unsp spec) [Mass/Vol] 4.5 mmol/L 3.3-5.1 [facility] RBC Auto (Bld) [#/Vol]Ordere d By: Lilly Cordero on 05-29-2024 RBC (Bld) [#/Vol] 5.36 10*6/uL 4.6-6.2 [facility] Screening total cholesterol/ high density lipoprotein (HDL) cholesterol ratioOrdered By: Lilly Cordero on 05-29-2024 Cholesterol.total/Choles terol in HDL [Mass ratio] 3.84 {ratio} [facility] Serum creatinine measurement (mass/volume)Ordered By: Lilly Cordero on 05-29-2024 Creatinine [Mass/Vol] 0.79 mg/dL 0.70-1.20 [facility] Serum globulin measurementOr dered By: Lilly Cordero on 05-29-2024 Globulin (S) [Mass/Vol] 3.8 g/dL 2.2-4.2 [facility] Serum glucose measurement (m ass/volume)Ordered By: Lilly Cordero on 05-29-2024 Glucose [Mass/Vol] 93 mg/dL 70-99 [facility] Serum or plasma alanine miller otransferase (ALT) measurementOrdered By: Lilly Cordero on 05-29-2024 ALT [Catalytic activity/Vol] 51 U/L High <47 [facility] Serum or plasma albumin cynthia urement (mass/volume)Ordered By: Lilly Cordero on 05-29-2024 Albumin [Mass/Vol] 4.1 g/dL 3.5-5.0 [facility] Serum or plasma albumin/glob ulin mass ratioOrdered By: Lilly Cordero on 05-29-2024 Albumin/Globulin [Mass ratio] 1.1 {ratio} 0.9-2.4 [facility] Serum or plasma alkaline talita sphatase measurementOrdered By: Lilly Cordero on 05-29-2024 ALP [Catalytic activity/Vol] 61 U/L 40-129 [facility] Serum or plasma calcium cynthia urement (mass/volume)Ordered By: Lilly Cordero on 05-29-2024 Calcium [Mass/Vol] 9.5 mg/dL 7.6-11.0 [facility] Serum or plasma cholesterol in HDL measurement (mass/volume)Ordered By: Lilly Cordero on 05-29-2024 Cholesterol in HDL [Mass/Vol] 41 mg/dL >40 [facility] Comment on above: National Cholesterol Education Program (NCEP) guidelines:<40 mg/dL: Low HDL-cholesterol (major risk factor for CHD)>= 60 mg/dL: High HDL-cholesterol (negative risk factor for CHD)HDL-cholesterol is affected by a number of factors, e.g. smoking, exercise, hormones, sex and age. Serum or plasma cholesterol measurement (mass/volume)Ordered By: Lilly Cordero on 05-29-2024 Cholesterol [Mass/Vol] 156 mg/dL <201 [facility] Comment on above: Cholesterol level, D esirable <200 mg/dLBorderline high cholesterol 200-239 mg/dLHigh cholesterol >=240 mg/dLRecommendations of the NCEP Adult Treatment Panel for the following risk-cutoff thresholds for the [place] population. Serum or plasma urea nitroge n measurement (mass/volume)Ordered By: Lilly Cordero on 05-29-2024 Urea nitrogen [Mass/Vol] 11 mg/dL 4-19 [facility] Sodium levelOrdered By: Merrick Cordero on 05-29-2024 Sodium [Moles/Vol] 140 mmol/L 133-145 [facility] T4 Free Directon 05-29-2024 T4 FREE DIRECT 0.80 ng/dL Normal 0.76-1.46 [facility] Comment on above: Performed By: #### L 500.4100, L500.4050, L501.9520, L506.0400, L100.0100 #### [facility] [address] [place], [place] [address] [place], [address] T4 freeOrdered By: Lilly lucas on 05-29-2024 Free T4 [Mass/Vol] 0.80 ng/dL 0.76-1.46 [facility] TSH DL <= 0.005 mIU/L QnOrde red By: Lilly Cordero on 05-29-2024 Thyroid Stimulating Hormone (TSH) 1.910 uIU/mL 0.300-4.200 [facility] TSH Qn 1.910 uIU/mL 0.300-4.200 [facility] Thyroid Stim Hormone (TSH)on 05-29-2024 TSH 1.910 uIU/mL Normal 0.300-4.200 [facility] Comment on above: Performed By: #### L 500.4100, L500.4050, L501.9520, L506.0400, L100.0100 #### [facility] [address] [place], [address] Total proteinOrdered By: Yandel Cordero on 05-29-2024 Protein [Mass/Vol] 7.9 g/dL 5.9-8.4 [facility] Triglycerides measurementOrd ered By: Lilly Cordero on 05-29-2024 Triglyceride [Mass/Vol] 88 mg/dL <199 [facility] Comment on above: The drugs N-Acetylcy steine and Metamizole may falsely depress this assay. Normal range: <150 mg/dLBorderline High: 150-199 mg/dLHigh: 200-499 mg/dLVery High: >500 mg/dL White blood cell (WBC) count Ordered By: Lilly Cordero on 05-29-2024 WBC (Bld) [#/Vol] 7.6 10*3/uL 4.4-11.0 [facility] Internal Medicine Office Vis iton 05-24-2024 Internal Medicine Office Visit [facility] [address] [place], [place] [address] OFFICE VISIT Date of Service: 05/29/24 MR#: [id number] Acct: [id number] Name: RUDY HOWELL Rep #: [id number] : 1995 Provider: Dr. Lilly grove MD Age/Sex: 28/M Location: [facility] [place] Status: Signed Intake Vital Signs 11/30/23 10:41 12/18/23 08:27 05/29/24 08:56 Height 6 ft 5 ft 11 in 5 ft 11 in Weight: 366 lb BMI 51.0 BP 130/82 H Blood Pressure Location Lt brachial Position Sitting Respiration 14 Pulse 91 Pulse Source Monitor Temp 98 F Temp Source Temporal Pulse Oximetry (%) 99 Oxygen Delivery Method room air Intake Visit Reasons: RE-EST/LEA PATIENT Chief Complaint: 3m f/u Utility Mechanic Required: No Is patient in pain?: No Allergies No Known Allergies Allergy (Unverified 05/29/24 08:46) Medications ???Medication ???Instructions ???Recorded ???Confirmed ???Type lisinopril 30 mg tablet 30 mg PO DAILY #90 tabs 05/29/24 0 05/29/24 Rx Nurse's Note: needs lisinopril refilled. Is fasting if labs are needed. [facility] Medical History (Updated 05/29/24 @ 09:[address] Lilly Cordero MD) Chewing tobacco dependence Family history of ASCVD Surgical History (Updated 05/29/24 @ 09:[address] Lilly Cordero MD) No pertinent past surgical history Family History (Updated 05/29/24 @ 09:[address] Lilly Cordero MD) Aunt Anemia Asthma Arthritis History of blood clots Cancer breast, cervical. Diabetes Hypertension Kidney disease Liver disease Osteoporosis Mother Arthritis History of blood clots Hypertension Diabetes Autoimmune disease Grandmother Cancer breast Myocardial infarction 60 Father Myocardial infarction, Onset Age: 50 x2 Grandfather Myocardial infarction Social History (Updated 05/29/24 @ 09:[address] 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 He was seeing Lea Sharp DNP and last saw her in November. He is due for some routine blood work. He is not due for any screening. He doesn't want any immunizations. He does smoke e-cigarettes and doesn't want to quit at this time. He reports, however, that he is cutting back. He does need refills. He reports he is eating healthy and staying active. He is hoping to increase his activity level with the improved weather. Currently, the patient reports he tries to walk every night, around 2 miles. He states he occasionally does intermittent fasting. The patient has been on blood pressure medications for just under a year. He does check his blood pressure at home occasionally. He states when he takes his medication, his systolic will be as high as 180, however, when he does take it, it will be similar to today's reading. He has been taking his medication as prescribed for the last 2-3 weeks, but admits he was not good at taking it prior to that. He does try to monitor his salt and caffeine intake. He has concerns about having sleep apnea. He reports his girlfriend has mentioned he stops breathing at night and wakes up gasping for air. He states he doesn't notice it, but does admit to snoring at night. He reports he occasionally feels tired throughout the day. ROS Const Constitutional: No body ache, chills, excessive sweating, fatigue, fever(s), frequent falls, headache(s), snoring, weakness, weight change, sleep problems or change in appetite Eyes Eyes: No blurry vision, change in vision, eye pain or Light sensitivity ENT ENT: No abnormal hearing, ear or mastoid pain, tinnitus, nasal congestion, headache(s), neck pain or sore throat Resp Respiratory: No cough, shortness of breath, snoring or wheezing Cardio Cardiology: No chest pain at rest, chest pain with exertion, excessive sweating, shortness of breath, dyspnea on exertion, lightheadedness, orthopnea, palpitations or other (no leg swelling) Gastro GI: No abdominal pain, change in bowel habits, constipation, cramping, diarrhea, nausea/dyspepsia or vomiting Genitourinary Male: No difficulty urinating, burning urination, painful urination, urinary incontinence or urinary fr (more content not included)... Normal [facility] Office Visit Reporton 2023 Office Visit Report [facility] [address] [place] [address] OFFICE VISIT Date of Service: 12/18/23 MR#: [id number] Acct: [id number] Patient: RUDY HOWELL Rep #: [id number] : 1995 Provider: ADELINA Duran Age/Sex: 28/M Location: [facility] [place] Status: Signed Intake Vital Signs 11/30/23 10:41 12/18/23 08:27 Height 6 ft 5 ft 11 in Weight: 367 lb 350 lb BMI 49.7 48.8 BP 140/80 H 126/94 H Blood Pressure Location Lt brachial Lt brachial Position Sitting Sitting Respiration 16 16 Pulse 107 H 101 H Pulse Source Monitor Monitor Temp 97.8 F 98.3 F Temp Source Temporal Temporal Pulse Oximetry (%) 97 98 Oxygen Delivery Method room air room air Intake Visit Reasons: SINUS PRESSURE/KYLE/ST/BILAT EAR PAIN Chief Complaint: 3m f/u Allergies No Known Allergies Allergy (Unverified 12/18/23 08:28) PFSH Medical History High blood pressure Family History Aunt Anemia Asthma Arthritis History of blood clots Cancer breast, cervical. 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 Patient states his symptoms started approximately a week ago. He had sinus congestion sinus drainage and a cough. He had a headache. No fevers chills night sweats. He has been using bant-urs-hqcxjvj medication to help with this. He does not come to the doctors frequently for viral URIs. He states that last night his right ear really started to hurt and that what prompted him to come to the urgent care today. ROS Const Constitutional: Positive for other (ROS negative x 6 except what is described above) Exam Const General: cooperative, healthy appearing and no acute distress Nutritional Appearance: obese Orientation: alert, awake and oriented x3 HENMT Head: normal to inspection and atraumatic Ears: hearing grossly normal bilaterally and TM abnormal erythematous (Right greater than left) Nose: external nose normal and mucous membranes and turbinates abnormal boggy Face and sinus: normal facial exam Mouth: oral mucosae normal Throat: posterior oropharynx abnormal erythema and postnasal drainage Eyes General: appearance normal, both eyes and all related structures Resp Effort Inspection: normal respiratory effort Auscultation: Bilateral: Clear to Auscultation Cardio Palpation: normal PMI Rate: regular rate Rhythm: regular rhythm Heart Sounds: S1 normal, S2 normal, no gallops, no murmurs and no rubs GI Inspection: normal to inspection Auscultation: normal bowel sounds Palpation: soft, no hepatosplenomegaly and nontender Neuro General: patient alert, patient awake, patient oriented x3 and CN's II-XI intact bilaterally Coding Level of Care Code Off vis,est,level 3 Diagnoses Acute sinus infection J01.90 Bilateral acute otitis media H66.93 Assessment and Plan Assessment and Plan (1) Acute sinus infection: Status: Acute (2) Bilateral acute otitis media: Status: Acute Medications: New amoxicillin 875 mg PO Q12H 10 days 20 tabs 0RF Plan Advised patient to complete course of antibiotics given. Advised patient on the importance of hydration. Recommended the use of rddh-ucb-dlqysbz support from Advil, Tylenol and ciet-qkj-xbvorwq cold medications to help alleviate symptoms. Did review maximum dosing on each of these medications to avoid accidental overdose of medications. Advised if not improving to see PCP. 12/18/23 0854 A> Date Marla SAHU Cosigner Signature: Date (if applicable) CC: Normal [facility] Internal Medicine Office Vis cordelia 11-30-2023 Internal Medicine Office Visit [facility] [address] [place] [address] [place] [address] OFFICE VISIT Date of Service: 11/30/23 MR#: [id number] Acct: [id number] Name: RUDY HOWELL Rep #: [id number] : 1995 Provider: RENE gomez Age/Sex: 28/M Location: [facility] [place] Status: Signed Intake Vital Signs 08/24/23 10:34 11/30/23 10:41 Height 6 ft 6 ft Weight: 364 lb 367 lb BMI 49.4 49.7 BP 124/86 H 140/80 H Blood Pressure Location Lt brachial Lt brachial Position Sitting Sitting Respiration 14 16 Pulse 95 107 H Pulse Source Monitor Monitor Temp 98.4 F 97.8 F Temp Source Temporal Temporal Pulse Oximetry (%) 99 97 Oxygen Delivery Method room air room air Intake Visit Reasons: 3 M FU Chief Complaint: 3m f/u Utility Mechanic Required: No Accompanied by: Self Is patient in pain?: No Allergies No Known Allergies Allergy (Unverified 11/30/23 10:39) Medications ???Medication ???Instructions ???Recorded ???Confirmed ???Type lisinopril 30 mg tablet 30 mg PO DAILY #90 tabs 08/24/23 11/30/23 Rx PFSH Medical History High blood pressure Family History Aunt Anemia Asthma Arthritis History of blood clots Cancer breast, cervical. 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 He was last evaluated in office on 08/24/2023. At that time blood pressure remain uncontrolled and lisinopril was increased to 30 mg daily. He denies adverse effects related to medication. Since increasing lisinopril, patient reports his blood pressure has much improved and is ranging 114???130s over 70s at home. He reports he is feeling better with his blood pressure being controlled. He also has decreased his consumption of chewing tobacco by 40% and feels this is helping. He continues to walk every other day with significant other reports that have been trying to utilize more home-cooked meals and monitoring their diet. He does monitor his salt intake. ROS Const Constitutional: No body ache, chills, excessive sweating, fatigue, fever(s), frequent falls, headache(s), snoring, weakness or change in appetite Eyes Eyes: No blurry vision, change in vision, eye pain or Light sensitivity ENT ENT: No abnormal hearing, ear or mastoid pain, tinnitus, nasal congestion, headache(s), neck pain or sore throat Resp Respiratory: No cough, shortness of breath, snoring or wheezing Cardio Cardiology: No chest pain at rest, chest pain with exertion, excessive sweating, dyspnea on exertion, lightheadedness, orthopnea or palpitations Gastro GI: No abdominal pain, change in bowel habits, constipation, cramping, diarrhea, nausea/dyspepsia or vomiting Genitourinary Male: No burning urination, painful urination, urinary incontinence or urinary frequency Musc Musculoskeletal: No abnormal gait, joint pain, back pain, limited range of motion, muscle weakness, neck pain or numbness Skin Skin: No dry skin, redness, lesions, itchy eyes, rash or wounds Neuro Neurology: No abnormal gait, abnormal hearing, weakness, frequent falls, headache(s), memory loss or numbness Psych Psychiatric: No anxiety, No change in appetite, No depression, No memory loss and No Thoughts of harming yourself/Others Endo Endocrine: No cold intolerance, excessive sweating, fatigue, flushing, heat intolerance, increased thirst/drinking or increased hunger Aller/Imm Allergy/Immunologic: No itchy eyes, seasonal allergy symptoms, hives or wheezing Jose Guadalupe/Lymp Hematologic/Lymphatic: No easy bleeding or easy bruising Exam Const General: cooperative, healthy appearing and comfortable Nutritional Appearance: obese Orientation: alert, awake and oriented x3 HENMT Head: normal to inspection, normocephalic and atraumatic Ears: hearing grossly normal bilaterally, external ears normal and TM's normal bilaterally Nose: external nose no (more content not included)... [facility] CNOVon 09-12-2020 CNOV Office Visit (ORTHYT ) RUDY HOWELL ([id number]) 1995 M Date Time Provider Department 09/12/20 1:00 PM YONIS ROPER During your visit today, we recorded the following information about you: Weight Height 163.7 kg 1.803 m Yonis Roper MD 09/12/2020 1:39 PM Signed Consultation requested by Shavonne Gamboa for an opinion regarding right knee pain. My final recommendations will be communicated back to the requesting physician by way of shared Medical record or letter to requesting physician via US mail. Rudy Howell is a pleasant 25 year old male who presents today with a chief complaint of right knee pain. There was associated injury. He slipped and landed on his buttock. Legs were straight out in front of him. It is localized to the right medial knee. There is no radiation. The pain is made better with rest and worse with walking. There is no associated numbness and tingling. There is no weakness. Having problems with gait. No clicking/popping/locki ng. 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 No current facility-administered medications for this visit. PMH: none There is no problem list on file for this patient. Social History Tobacco Use - Smoking status: Current Every Day Smoker - Smokeless tobacco: Current User Substance Use Topics - Alcohol use: Not on file - Drug use: Not on file FMH: noncontributory Review of Systems: GENERAL: negative for fevers, chills, night sweats, unwanted weight loss, excessive weight gain SKIN: negative for rashes, itching HEAD: negative for headaches, dizziness EYES: negative for vision loss EARS: negative for hearing loss NOSE: negative for nose bleeds MOUTH/THROAT: negative for throat pain, difficulty swallowing RESPIRATORY: negative for cough, shortness of breath CARDIOVASCULAR: negative for chest pain, rapid heartbeat, irregular heartbeat GASTROINTESTINAL: negative for abdominal pain, diarrhea, constipation, heartburn, nausea GENITOURINARY: negative for frequency, incontinence ENDOCRINE: negative for thyroid problems, heat intolerance MUSCULOSKELETAL: see HPI NEUROLOGIC: negative for memory loss, loss of balance, incoordination HEMATOLOGIC: negative for easy bruising PSYCHIATRIC: negative for depression, anxiety, insomnia The remainder of the ROS was negative Labs/Imaging/EMG: (reviewed by me today/discussed with patient) Xray right knee 09-10-20: OCD lesion in lateral femoral condyle Chart was extensively reviewed in regard to documentation from previous providers and previous testing results as appropriate. Physical Exam: 09/12/20 1245 Weight: (!) 163.7 kg (361 lb) Height: 180.3 cm (5' 11") 25 year old male in no acute distress. Respirations are unlabored. He is pleasant and oriented x3. There is no extremity edema. Peripheral pulses are palpable. No lymphadenopathy. No rashes or lesions on the skin. Right knee examination shows no swelling, erythema, effusion, or warmth. No deformity. No tenderness along the medial joint line or lateral joint line. Mild crepitus with gentle range of motion. Varus-valgus testing shows medial ligament laxity. Melissa's is negative. Posterior drawer is negative. Lois's is negative. Sensation is intact to light touch. Strength testing is intact. ROM is 0/140. Gait is antalgic on right. Impression: (S83.411A) Grade 1 injury of medial collateral ligament of right knee, initial encounter (primary encounter diagnosis) Plan: -PT -brace -voltaren gel TID -follow up PRN I spent a total of 60 minutes on the date of the service which included preparing to see the patient, [id number] patient care, completing clinical documentation, performing a medically appropriate examination, counseling and educating the patient/family/caregiv er, ordering medications, tests or procedures and communicating results to the patient/family/caregiv er. This consultation note will be sent to the following physician(s) by either mail or electronic medical record. cc: Shavonne Roper MD [employer] Research Engineer Department of Orthopaedics Yonis Roper MD 09/12/2020 1:12 PM Signed VOLTAREN GEL 3-4 times a day Referring Provider: SELF [200] Allergies As of Date: 09/12/2020 (No Known Allergies) Date Reviewed: 09/12/2020 Reviewed by: Yonis Canales (more content not included)... Normal [facility] CNOVon 09-10-2020 CNOV Office Visit (JASVIR ) RUDY HOWELL ([id number]) 1995 M Date Time Provider Department 09/10/20 11:25 AM SHAVONNE GAMBOA During your visit today, we recorded the following information about you: Pulse Respiration Blood pressure Weight 112/minute 16/minute 186/114 163.7 kg Height 1.803 m Shavonne Gamboa PA-C 09/10/2020 2:18 PM Signed 09/10/2020 Patient presents with: Right Knee Pain: fell wednesday SUBJECTIVE: This is a 25 year old that is here today for evaluation his medial right knee, which has been tender (pain 6/10) for 4 days. He states that he slipped 4 days ago and his leg went forward and he fell back. He landed on his buttocks. He denies landing on his knees or twisting the knee. Pain is located in the medial knee and described as aching. Pain has not worsened or changed. No swelling or redness anywhere. Pain is worsened by walking- pain is not worse with simple standing or weight bearing, but is worsened by extending and the the motion of walking. He denies any posterior knee or popliteal pain or swelling/fullness. He denies any calf pain or swelling. He denies any feeling of knee popping, laxity, looseness, locking, giving out, crunching, or other foreign sensation in the knee. He denies any numbness, tingling, loss of function, loss of sensation, or other neuro-msk changes. Denies fever, chills, sweats, or fatigue. Patient denies cough, wheezing, shortness of breath, increased WOB, or chest pain. No other sick symptoms. Denies fever, chills, sweats, or fatigue. Patient denies wheezing, shortness of breath, increased WOB, or chest pain. No other URI symptoms. No other sick symptoms. Pain on scale of 0-10 with 0 being no pain and 10 being greatest pain:6 Nothing makes the symptoms better. Nothing makes them worse. Self-treatment:. See HPI Barriers to learning: none. Reviewed meds, OTCs, herbals or supplements. Reviewed allergies, medications, social history, and past medical history. No past medical history on file. ALLERGIES Patient has no known allergies. MEDICATIONS No current outpatient medications on file. No current facility-administered medications for this visit. Medications and allergies reviewed by this provider. SOCIAL HISTORY Social History Tobacco Use - Smoking status: Current Every Day Smoker - Smokeless tobacco: Current User Substance Use Topics - Alcohol use: Not on file - Drug use: Not on file REVIEW OF SYSTEMS Review of Systems ROS: constitutional-neg, heent-neg, heart-neg, respiratory-neg, GI-neg, -neg, skin-neg, MS-right medial knee pain, endo-neg, heme-neg, lymph-neg, neuro-neg, psych-neg- All systems neg except as noted above in HPI. OBJECTIVE: BP 186/114 Pulse 112 Resp 16 Ht 180.3 cm (5' 11") Wt (!) 163.7 kg (361 lb) SpO2 98% BMI 50.35 kg/m? . Vital signs reviewed by this provider. Physical Exam Vitals reviewed. Constitutional: General: He is not in acute distress. Appearance: Normal appearance. He is obese. He is not ill-appearing, toxic-appearing or diaphoretic. HENT: Head: Normocephalic and atraumatic. Cardiovascular: Pulses: Dorsalis pedis pulses are 2+ on the right side. Musculoskeletal: Right upper leg: Normal. Right knee: No swelling, deformity, effusion, erythema, ecchymosis, lacerations, bony tenderness or crepitus. Decreased range of motion. Tenderness present over the medial joint line and MCL. No lateral joint line, LCL, ACL, PCL or patellar tendon tenderness. No LCL laxity, MCL laxity, ACL laxity or PCL laxity. Normal alignment, normal meniscus and normal patellar mobility. Normal pulse. Instability Tests: Anterior drawer test negative. Posterior drawer test negative. Anterior Melissa test negative. Medial Lois test negative and lateral Lois test negative. Right lower leg: Normal. Right ankle: Normal. Right Achilles Tendon: Normal. Right foot: Normal. Legs: Comments: Musculoskeletal: Gait- Slight limp favoring right leg Right knee and right LE strength 5/5 Right knee full ROM- complains of mild pain in the medial knee with flexion and walking. No pain with simple standing and weight bearing. No joint laxity No edema or tenderness of the left calf Homans -negative Mild resolving bruising of the anterior-lateral tibia/calf Right LE- pulses intact. Cap refill <2 sec Sensation intact Skin: General: Skin is warm. Capillary Refill: Capillary refill takes less than 2 seconds. Findings: No bruising, ecchymosis, erythema, lesion or rash. Neurological: General: No focal deficit present. Mental Status: He is alert and oriented to person, place, and time. Sensory: Sensation is intact. ASSESSMENT/PLAN: 1. Injury of right knee, initial encounter - ICD9: 959.7, ICD10: S89.91XA (primary diagnosis) 2. Medial knee pain, right - ICD9: 71 (more content not included)... Normal [facility] 09-10-2020 CNPN Telephone (WALKWA) RUDY HOWELL ([id number]) 1995 M Date Time Provider Department 09/10/20 SHAVONNE GAMBOA During your visit today, we recorded the following information about you: Shavonne Gamboa PA-C 09/10/2020 3:56 PM Signed This provider called and discussed with Rudy his right knee x-ray findings. His pain is located in the medial knee. No lateral knee or femoral pain. Orthopedic consult was placed for evaluation of his knee pain and for the nondisplaced osteochondral defect in the lateral femoral condyle which may represent osteochondral fracture or osteochondritis dissecans." Please call the number now and schedule for this week. He VU and will schedule. Advised return her for crutches due to some pain with walking and the findings on the x-ray. He declined crutches. Note for work provided. Discussed all red flag symptoms and reasons to go to ER No further questions. Shavonne Gamboa PA-C IMPRESSION: 1. ?There is a small nondisplaced osteochondral defect in the lateral femoral condyle which may represent osteochondral fracture or osteochondritis dissecans. ?No overt knee joint effusion. Allergies As of Date: 09/10/2020 (No Known Allergies) Date Reviewed: 09/10/2020 Reviewed by: Candida Boyle Ma - Fully Assessed Reason for Visit: Results [95] Prescriptions as of 09/10/2020 Sig: METHYLPREDNISOLONE 4 MG TABLE* Follow dosing instructions, t* Problem List As Of Date: 09/10/2020 (None) Letter Text Encounter Status:Closed by SHAVONNE GAMBOA on 09/10/20 Normal [facility] XR KNEE 4V AP/PA BOTH+LAT/ME R RTon 09-10-2020 XR KNEE 4V AP/PA BOTH+LAT/VITO RT * * *Final Report* * * DATE OF EXAM: Sep 10 2020 12:51PM AWX 5203 - XR KNEE 4V AP/PA BOTH+LAT/VITO RT / PROCEDURE REASON: multiple diagnoses * * * * Physician Interpretation * * * * EXAMINATION: RIGHT KNEE X-RAY SERIES HISTORY: Injury of right knee, initial encounter Medial knee pain, right Fall, initial encounter COMPARISON: None available. TECHNIQUE: Weightbearing AP, weightbearing PA, lateral and sunrise views RESULT: There is a small nondisplaced osteochondral defect identified in the lateral femoral condyle. Findings may represent nondisplaced osteochondral fracture or osteochondritis dissecans. Joint spaces and articular surfaces are otherwise preserved. No overt knee joint effusion. IMPRESSION: 1. There is a small nondisplaced osteochondral defect in the lateral femoral condyle which may represent osteochondral fracture or osteochondritis dissecans. No overt knee joint effusion. Underground Conduit Installer: PSCB Transcribe Date/Time: Sep 10 2020 12:58P Dictated by : ALEJANDRA PORTILLO MD This examination was interpreted and the report reviewed and electronically signed by: ALEJANDRA PORTILLO MD on Sep 10 2020 1:04PM EST [id number] Normal [facility] Vital Signs Date Time Vital Sign Value Performing Clinician Chanell ruiz 09-11-2024 09:55-0400 Diastolic blood pressure 96 mm[Hg] Lea Sharp NP-C Work Phone: [facility] 09-11-2024 09:55-0400 Systolic blood pressure 144 mm[Hg] Lea Sharp CREATIVE SERVICES PRODUCER-C Work Phone: [facility] 09-05-2024 08:03-0400 Diastolic blood pressure 102 mm[Hg] Lea Sharp CREATIVE SERVICES PRODUCER-C Work Phone: [facility] 09-05-2024 08:03-0400 Systolic blood pressure 166 mm[Hg] Lea Sharp NP-C Work Phone: [facility] 09-05-2024 07:27-0400 Body height 180.34 cm Lea Bentleyullo CREATIVE SERVICES PRODUCER-C Work Phone: [facility] 09-05-2024 07:27-0400 Body mass index (BMI) [Ratio] 51.4 kg/m2 Leadaryl Bentleyullo CREATIVE SERVICES PRODUCER-C Work Phone: [facility] 09-05-2024 07:27-0400 Body temperature 97.7 [degF] Lea Mcullo CREATIVE SERVICES PRODUCER-C Work Phone: [facility] 09-05-2024 07:27-0400 Body weight 167.37 kg Leadaryl Bentleyullo CREATIVE SERVICES PRODUCER-C Work Phone: [facility] 09-05-2024 07:27-0400 Diastolic blood pressure 94 mm[Hg] Lea Mcullo CREATIVE SERVICES PRODUCER-C Work Phone: [facility] 09-05-2024 07:27-0400 Heart rate 100 /min Leadaryl Bentleyullo CREATIVE SERVICES PRODUCER-C Work Phone: [facility] 09-05-2024 07:27-0400 Respiratory rate 18 /min Lea Ferullo CREATIVE SERVICES PRODUCER-C Work Phone: [facility] 09-05-2024 07:27-0400 SaO2% (BldA) [Mass fraction] 98 % Lea Mcullo CREATIVE SERVICES PRODUCER-C Work Phone: [facility] 09-05-2024 07:27-0400 Systolic blood pressure 148 mm[Hg] Lea Mcullo CREATIVE SERVICES PRODUCER-C Work Phone: [facility] 06-30-2024 16:54-0400 Body temperature 99 [degF] Lea Ferullo CREATIVE SERVICES PRODUCER-C Work Phone: [facility] 06-30-2024 16:54-0400 Diastolic blood pressure 96 mm[Hg] Lea Ferullo CREATIVE SERVICES PRODUCER-C Work Phone: [facility] 06-30-2024 16:54-0400 Heart rate 103 /min Lea Ferullo CREATIVE SERVICES PRODUCER-C Work Phone: [facility] 06-30-2024 16:54-0400 Respiratory rate 17 /min Lea Santacruzo CREATIVE SERVICES PRODUCER-C Work Phone: [facility] 06-30-2024 16:54-0400 SaO2% (BldA) [Mass fraction] 96 % Lea Santacruzo CREATIVE SERVICES PRODUCER-C Work Phone: [facility] 06-30-2024 16:54-0400 Systolic blood pressure 166 mm[Hg] Lea Bentleyullo CREATIVE SERVICES PRODUCER-C Work Phone: [facility] 05-29-2024 08:56-0400 Body height 180.34 cm Lea Bentleyullo CREATIVE SERVICES PRODUCER-C Work Phone: [facility] 05-29-2024 08:56-0400 Body mass index (BMI) [Ratio] 51 kg/m2 Lea Bentleyconstantineo CREATIVE SERVICES PRODUCER-C Work Phone: [facility] 05-29-2024 08:56-0400 Body temperature 98 [degF] Lea Bentleyullo CREATIVE SERVICES PRODUCER-C Work Phone: [facility] 05-29-2024 08:56-0400 Body weight 166.01 kg Lea Bentleyullo CREATIVE SERVICES PRODUCER-C Work Phone: [facility] 05-29-2024 08:56-0400 Diastolic blood pressure 82 mm[Hg] Lea Bentleyullo CREATIVE SERVICES PRODUCER-C Work Phone: [facility] 05-29-2024 08:56-0400 Heart rate 91 /min Leadaryl Bentleyullo CREATIVE SERVICES PRODUCER-C Work Phone: [facility] 05-29-2024 08:56-0400 Respiratory rate 14 /min Leadaryl Bentleyullo CREATIVE SERVICES PRODUCER-C Work Phone: [facility] 05-29-2024 08:56-0400 SaO2% (BldA) [Mass fraction] 99 % Leadaryl Bentleyullo CREATIVE SERVICES PRODUCER-C Work Phone: [facility] 05-29-2024 08:56-0400 Systolic blood pressure 130 mm[Hg] Lea Bentleysherman CREATIVE SERVICES PRODUCER-C Work Phone: [facility] 06-20-2021 09:01-0400 Diastolic blood pressure 115 mm[Hg] MANOJ NIEVES MD [facility] 06-20-2021 09:01-0400 Heart rate 107 /min MANOJ NIEVES MD [facility] 06-20-2021 09:01-0400 Respiratory rate 18 /min MANOJ NIEVES MD [facility] 06-20-2021 09:01-0400 Systolic blood pressure 170 mm[Hg] MANOJ NIEVES MD [facility] 06-20-2021 08:57-0400 Diastolic blood pressure 122 mm[Hg] MANOJ NIEVES MD [facility] 06-20-2021 08:57-0400 Heart rate 108 /min MANOJ NIEVES MD [facility] 06-20-2021 08:57-0400 Respiratory rate 18 /min MANOJ NIEVES MD [facility] 06-20-2021 08:57-0400 Systolic blood pressure 168 mm[Hg] MANOJ NIEVES MD [facility] 06-20-2021 08:48-0400 Body height 180 cm MANOJ NIEVES MD [facility] 06-20-2021 08:48-0400 Body temperature 98.6 [degF] MANOJ NIEVES MD [facility] 06-20-2021 08:48-0400 Body weight 159 kg MANOJ NIEVES MD [facility] 06-20-2021 08:48-0400 diastolic 134 mm[Hg] MANOJ NIEVES MD [facility] 06-20-2021 08:48-0400 Diastolic blood pressure 115 mm[Hg] MANOJ NIEVES MD [facility] 06-20-2021 08:48-0400 Heart rate 126 /min MANOJ NIEVES MD [facility] 06-20-2021 08:48-0400 Respiratory rate 18 /min MANOJ NIEVES MD [facility] 06-20-2021 08:48-0400 systolic 175 mm[Hg] MANOJ NIEVES MD [facility] 06-20-2021 08:48-0400 Systolic blood pressure 154 mm[Hg] MANOJ NIEVES MD [facility] Encounters Encounter Date Encounter Type Care Provider Facility Start: 09-11-2024 End: 09-11-2024 Patient encounter procedure BIM NURSE -[facility] Work Phone: Start: 09-11-2024 End: 09-11-2024 ambulatory Lea Noamo CREATIVE SERVICES PRODUCER-C Work Phone: [facility] Work Phone: Start: 09-05-2024 End: 09-05-[address] Lilly Cordero MD -[facility] Work Phone: Start: 09-05-2024 End: 09-05-2024 ambulatory Lea Sharp CREATIVE SERVICES PRODUCER-C Work Phone: [facility] Work Phone: Start: 06-30-2024 End: 06-30-2024 Patient encounter procedure Elias Armenta [place] -[facility] Work Phone: Start: 06-30-2024 End: 06-30-2024 ambulatory Lilly [place] Facility:[facility] Start: 06-05-2024 End: 06-05-2024 ambulatory Lea Noamo CREATIVE SERVICES PRODUCER-C Work Phone: [facility] Work Phone: Start: 06-05-2024 End: 06-05-[address] Lilly Cordero MD [facility] Work Phone: Start: 06-05-2024 End: 06-05-2024 ambulatory Lilly Jarquiny Facility:[facility] Start: 05-29-2024 End: 05-29-[address] Lilly Cordero MD -[facility] Work Phone: Start: 05-29-2024 End: 05-29-2024 ambulatory Lea Ferconstantineo CREATIVE SERVICES PRODUCER-C Work Phone: [facility] Work Phone: Start: 05-29-2024 End: 05-29-2024 ambulatory Lilly [place] Facility:[facility] Start: 12-18-2023 End: 12-18-2023 ambulatory Marla SAHU Facility:[facility] Start: 11-30-2023 End: 11-30-2023 ambulatory Lea Sharp Facility:[facility] Start: 06-20-2021 End: 06-20-2021 Emergency department patient visit MANOJ NIEVES MD [facility] Plan of Treatment Date Care Activity Detail Author Tobacco use cessation education [facility] Tobacco use cessation education [facility] Payers Date Payer Category Payer Self-pay 2023 Unknown [id number] Unknown [id number] 2.16.8 [id number] Unknown [id number] 2.16.8 [id number] Unknown [id number] 2.16.8 [id number] Unknown [id number] 2.16.8 [id number] Unknown [id number] 2.16.8 [id number] Unknown [id number] 2.16.8 [id number] Unknown [id number] 2.16.8 [id number] Unknown [id number] 2.16.8 [id number] Social History Date Type Detail Facility Start: 06-20-2021 Tobacco smoking status Light t obacco smoker (finding) [facility] Start: 1995 Sex Assigned At Male [facility] Start: 05-29-2024 End: 09-04-2024 Tobacco smoking status NHIS Smokes tobacco daily (finding) [facility] Start: 06-08-2024 End: 06-14-2024 Sex Male (finding) [facility] Gender Identity Identifies as shamar le gender (finding) [facility] Sexual Orientation Heterosexual (finding) [facility] Functional Status Date Assessment Result Facility 06-20-[facility]21 [facility] Date Assessment Result Facility 06-20-2021 Mental Status Marielle Cruzit al [facility] Evaluation note 05-29-2024 Note Date & Type Note Facility 05-29-2024 Evaluation note Diagnosis Onset Date Resolution Immunization declined noneactive [facility] 2024 8:46am Establishing care with new doctor, encounter for noneactive May 29, 2024 8:46am Electronic cigarette use noneactive May 29, 2024 8:46am Suspected sleep apnea noneactive [facility] 2024 8:46am Essential hypertension noneactive [facility] 2024 8:46am Morbid obesity with BMI of 50.0-59.9, adult noneactive May 29, 2024 8:46am [facility] Work Phone: Evaluation note 05-29-2024 Note Date & Type Note Facility 05-29-2024 Evaluation note Diagnosis Onset Date Resolution Immunization declined noneactive [facility] 2024 8:46am Establishing care with new doctor, encounter for noneactive May 29, 2024 8:46am Electronic cigarette use noneactive May 29, 2024 8:46am Suspected sleep apnea noneactive [facility] 2024 8:46am Essential hypertension noneactive [facility] 2024 8:46am Morbid obesity with BMI of 50.0-59.9, adult noneactive May 29, 2024 8:46am Acute sinus infection resolved Jun 4:49pm LEESA (obstructive sleep apnea) noneactive September 05, 2024 7:21am Electronic cigarette use noneactive September 05, 2024 7:21am Essential hypertension noneactive 2024 7:21am Morbid obesity with BMI of 50.0-59.9, adult noneactive September 05, 025 7:21am [facility] Work Phone: Evaluation note 05-29-2024 Note Date & Type Note Facility 05-29-2024 Evaluation note Diagnosis Onset Date Resolution Immunization declined noneactive [facility] 2024 8:46am Establishing care with new doctor, encounter for noneactive May 29, 2024 8:46am Electronic cigarette use noneactive May 29, 2024 8:46am Suspected sleep apnea noneactive [facility] 2024 8:46am Essential hypertension noneactive [facility] 2024 8:46am Morbid obesity with BMI of 50.0-59.9, adult noneactive May 29, 2024 8:46am Acute sinus infection resolved Jun 4:49pm Elevated ALT measurement noneactive September 05, 2024 7:21am LEESA (obstructive sleep apnea) noneactive September 05, 2024 7:21am Electronic cigarette use noneactive September 05, 2024 7:21am Essential hypertension noneactive [facility] 2024 7:21am Morbid obesity with BMI of 50.0-59.9, adult noneactive September 05 025 7:21am [facility] Work Phone: Hospital Discharge instructions 06-20-2021 Note Date & Type Note Facility 06-20-2021 Hospital Discharg e instructions Patient Education 06/20/2021 08:57:52 HYPERTENSION, Established, Out of Control Out of Control High Blood Pressure (Established) Your blood pressure was unusually high today. This can occur if you ve missed doses of your blood pressure medicine. Or it can happen if you are taking other medicines. These include some asthma inhalers, decongestants, diet pills, and street drugs like cocaine and amphetamine. Other causes include: Weight gain More salt in your diet Smoking Caffeine Your blood pressure can also rise if you are emotionally upset or in intense pain. It may go back to normal after a period of rest. A blood pressure reading is made up of 2 numbers. There is a top number over a bottom number. The top number is the systolic pressure. The bottom number is the diastolic pressure. A normal blood pressure is less than 120 over less than 80. High blood pressure (hypertension) is when the top number is 140 or higher. Or it is when the bottom number is 90 or higher. To be high blood pressure, the numbers must be higher when tested over a period of time. The blood pressures between normal and hypertension are called prehypertension. Home care It s important to take steps to lower your blood pressure. If you are taking blood pressure medicine, the guidelines below may help you need less or no medicines in the future. Begin a weight-loss program if you are overweight. Cut back on the amount of salt in your diet: Avoid high-salt foods like olives, pickles, smoked meats, and salted potato chips. Don t add salt to your food at the table. Use only small amounts of salt when cooking. Begin an exercise program. Talk with your health care provider about what exercise program is best for you. It doesn t have to be difficult. Even brisk walking for 20 minutes 3 times a week is a good form of exercise. Avoid medicines that have heart stimulants in them. This includes many cold and sinus decongestant pills and sprays, as well as diet pills. Check the warnings about hypertension on the label. Stimulants such as amphetamine or cocaine could be lethal for someone with hypertension. Never take these. Limit how much caffeine you drink. Or switch to noncaffeinated beverages. Stop smoking. If you are a long-time smoker, this can be hard. Enroll in a stop-smoking program to make it more likely that you will succeed. Talk with your provider about ways to quit. Learn how to handle stress better. This is an important part of any program to lower blood pressure. Learn ways to relax. These include meditation, yoga, and biofeedback. If medicines were prescribed, take them exactly as directed. Missing doses may cause your blood pressure to get out of control. Consider buying an automatic blood pressure machine. These are available at many [employer]. Use this to monitor your blood pressure. Report the results to your provider. Follow-up care Regular visits to your own health care provider for blood pressure and medicine checks are an important part of your care. Make a follow-up appointment as directed. When to seek medical advice Call your health care provider right away if any of these occur: Chest, arm, shoulder, neck, or upper back pain Shortness of breath Severe headache Throbbing or rushing sound in the ears Nosebleed Extreme drowsiness, confusion, or fainting Dizziness or dizziness with spinning sensation (vertigo) Weakness in an arm or leg or on one side of the face Difficulty speaking or seeing [phone] [employer]. [address] [place] [address], [place] [address]. All rights reserved. This information is not intended as a substitute for professional medical care. Always follow your healthcare professional's instructions. Follow Up Care 06/20/2021 08:41:01 With:Follow up with primary care provider Address:Unknown When:2-4 days [facility] Progress note 09-12-2020 Note Date & Type Note Facility 09-12-2020 Note HNO ID: [id number] Author: Yonis Roper MD Service: ? Author Type: Physician Type: Progress Notes Filed: 09/12/2020 1:39 PM Note Text: Consultation requested by Shavonne Gamboa for an opinion regarding right knee pain. My final recommendations will be communicated back to the requesting physician by way of shared Medical record or letter to requesting physician via US mail. Rudy Howell is a pleasant 25 year old male who presents today with a chief complaint of right knee pain. There was associated injury. He slipped and landed on his buttock. Legs were straight out in front of him. It is localized to the right medial knee. There is no radiation. The pain is made better with rest and worse with walking. There is no associated numbness and tingling. There is no weakness. Having problems with gait. No clicking/popping/locking. 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 No current facility-administered medications for this visit. PMH: none There is no problem list on file for this patient. Social History Tobacco Use - Smoking status: Current Every Day Smoker - Smokeless tobacco: Current User Substance Use Topics - Alcohol use: Not on file - Drug use: Not on file FMH: noncontributory Review of Systems: GENERAL: negative for fevers, chills, night sweats, unwanted weight loss, excessive weight gain SKIN: negative for rashes, itching HEAD: negative for headaches, dizziness EYES: negative for vision loss EARS: negative for hearing loss NOSE: negative for nose bleeds MOUTH/THROAT: negative for throat pain, difficulty swallowing RESPIRATORY: negative for cough, shortness of breath CARDIOVASCULAR: negative for chest pain, rapid heartbeat, irregular heartbeat GASTROINTESTINAL: negative for abdominal pain, diarrhea, constipation, heartburn, nausea GENITOURINARY: negative for frequency, incontinence ENDOCRINE: negative for thyroid problems, heat intolerance MUSCULOSKELETAL: see HPI NEUROLOGIC: negative for memory loss, loss of balance, incoordination HEMATOLOGIC: negative for easy bruising PSYCHIATRIC: negative for depression, anxiety, insomnia The remainder of the ROS was negative Labs/Imaging/EMG: (reviewed by me today/discussed with patient) Xray right knee 09-10-20: OCD lesion in lateral femoral condyle Chart was extensively reviewed in regard to documentation from previous providers and previous testing results as appropriate. Physical Exam: 09/12/20 1245 Weight: (!) 163.7 kg (361 lb) Height: 180.3 cm (5' 11") 25 year old male in no acute distress. Respirations are unlabored. He is pleasant and oriented x3. There is no extremity edema. Peripheral pulses are palpable. No lymphadenopathy. No rashes or lesions on the skin. Right knee examination shows no swelling, erythema, effusion, or warmth. No deformity. No tenderness along the medial joint line or lateral joint line. Mild crepitus with gentle range of motion. Varus-valgus testing shows medial ligament laxity. Melissa's is negative. Posterior drawer is negative. Lois's is negative. Sensation is intact to light touch. Strength testing is intact. ROM is 0/140. Gait is antalgic on right. Impression: (S83.411A) Grade 1 injury of medial collateral ligament of right knee, initial encounter (primary encounter diagnosis) Plan: -PT -brace -voltaren gel TID -follow up PRN I spent a total of 60 minutes on the date of the service which included preparing to see the patient, [id number] patient care, completing clinical documentation, performing a medically appropriate examination, counseling and educating the patient/family/caregiver, ordering medications, tests or procedures and communicating results to the patient/family/caregiver. This consultation note will be sent to the following physician(s) by either mail or electronic medical record. cc: Shavonne Roper MD [employer] Research Engineer Department of Orthopaedics [facility] Progress note 09-10-2020 Note Date & Type Note Facility 09-10-2020 Note HNO ID: [id number] Author: RT Urbano(R) Service: Radiology Author Type: Seismic Prospect[employer] Observer Helper Type: Progress Notes Filed: 09/10/2020 12:51 PM Note Text: Radiology Service Progress Note PATIENT NAME: Rudy Howell DATE OF SERVICE: September 10, 2020 TIME: 12:51 PM PATIENT IDENTITY VERIFICATION COMPLETED USING TWO (2) IDENTIFIERS: Name and Date of confirmed by patient verbally. FALL SCREENING: Has the patient had 2 falls in the last year or 1 fall with injury or currently using an Ambulatory Assistive Device (Walker, Cane, Wheelchair, Crutches, etc.)? No PATIENT GENDER DATA: Male PATIENT RELEVANT IMPLANT DATA REVIEWED: Not Applicable RADIOLOGY DEPARTMENT: General X-ray: Exam(s) Completed: Lower Extremity X-Ray(s): Knee, AP / Lat / Tunne / Merchant Right PERIPHERAL IV DATA: Not applicable SIGNED BY: RT Urbano(R) September 10, 2020 12:51 PM [facility] Progress note 09-10-2020 Note Date & Type Note Facility 09-10-2020 Note HNO ID: [id number] Author: Shavonne Gamboa PA-C Service: ? Author Type: Physician Opener Verifier [employer] Type: Progress Notes Filed: 09/10/2020 2:18 PM Note Text: 09/10/2020 Patient presents with: Right Knee Pain: fell wednesday SUBJECTIVE: This is a 25 year old that is here today for evaluation his medial right knee, which has been tender (pain 6/10) for 4 days. He states that he slipped 4 days ago and his leg went forward and he fell back. He landed on his buttocks. He denies landing on his knees or twisting the knee. Pain is located in the medial knee and described as aching. Pain has not worsened or changed. No swelling or redness anywhere. Pain is worsened by walking- pain is not worse with simple standing or weight bearing, but is worsened by extending and the the motion of walking. He denies any posterior knee or popliteal pain or swelling/fullness. He denies any calf pain or swelling. He denies any feeling of knee popping, laxity, looseness, locking, giving out, crunching, or other foreign sensation in the knee. He denies any numbness, tingling, loss of function, loss of sensation, or other neuro-msk changes. Denies fever, chills, sweats, or fatigue. Patient denies cough, wheezing, shortness of breath, increased WOB, or chest pain. No other sick symptoms. Denies fever, chills, sweats, or fatigue. Patient denies wheezing, shortness of breath, increased WOB, or chest pain. No other URI symptoms. No other sick symptoms. Pain on scale of 0-10 with 0 being no pain and 10 being greatest pain:6 Nothing makes the symptoms better. Nothing makes them worse. Self-treatment:. See HPI Barriers to learning: none. Reviewed meds, OTCs, herbals or supplements. Reviewed allergies, medications, social history, and past medical history. No past medical history on file. ALLERGIES Patient has no known allergies. MEDICATIONS No current outpatient medications on file. No current facility-administered medications for this visit. Medications and allergies reviewed by this provider. SOCIAL HISTORY Social History Tobacco Use - Smoking status: Current Every Day Smoker - Smokeless tobacco: Current User Substance Use Topics - Alcohol use: Not on file - Drug use: Not on file REVIEW OF SYSTEMS Review of Systems ROS: constitutional-neg, heent-neg, heart-neg, respiratory-neg, GI-neg, -neg, skin-neg, MS-right medial knee pain, endo-neg, heme-neg, lymph-neg, neuro-neg, psych-neg- All systems neg except as noted above in HPI. OBJECTIVE: BP 186/114 Pulse 112 Resp 16 Ht 180.3 cm (5' 11") Wt (!) 163.7 kg (361 lb) SpO2 98% BMI 50.35 kg/m? . Vital signs reviewed by this provider. Physical Exam Vitals reviewed. Constitutional: General: He is not in acute distress. Appearance: Normal appearance. He is obese. He is not ill-appearing, toxic-appearing or diaphoretic. HENT: Head: Normocephalic and atraumatic. Cardiovascular: Pulses: Dorsalis pedis pulses are 2+ on the right side. Musculoskeletal: Right upper leg: Normal. Right knee: No swelling, deformity, effusion, erythema, ecchymosis, lacerations, bony tenderness or crepitus. Decreased range of motion. Tenderness present over the medial joint line and MCL. No lateral joint line, LCL, ACL, PCL or patellar tendon tenderness. No LCL laxity, MCL laxity, ACL laxity or PCL laxity. Normal alignment, normal meniscus and normal patellar mobility. Normal pulse. Instability Tests: Anterior drawer test negative. Posterior drawer test negative. Anterior Melissa test negative. Medial Lois test negative and lateral Lois test negative. Right lower leg: Normal. Right ankle: Normal. Right Achilles Tendon: Normal. Right foot: Normal. Legs: Comments: Musculoskeletal: Gait- Slight limp favoring right leg Right knee and right LE strength 5/5 Right knee full ROM- complains of mild pain in the medial knee with flexion and walking. No pain with simple standing and weight bearing. No joint laxity No edema or tenderness of the left calf Homans -negative Mild resolving bruising of the anterior-lateral tibia/calf Right LE- pulses intact. Cap refill <2 sec Sensation intact Skin: General: Skin is warm. Capillary Refill: Capillary refill takes less than 2 seconds. Findings: No bruising, ecchymosis, erythema, lesion or rash. Neurological: General: No focal deficit present. Mental Status: He is alert and oriented to person, place, and time. Sensory: Sensation is intact. ASSESSMENT/PLAN: 1. Injury of right knee, initial encounter - ICD9: 959.7, ICD10: S89.91XA (primary diagnosis) 2. Medial knee pain, right - ICD9: 719.46, ICD10: M25.561 3. Fall, initial encounter - ICD9: E888.9, ICD10: W19.XXXA - XR KNEE GENERAL 4V AP BOTH/PA BOTH/LAT/MERC RT Get your knee x-ray as an outpatient [facility] Outpatient radiology department We will call you with results (more content not included)... [facility] Evaluation + Plan note Note Date & Type Note Facility Evaluation + Plan note No data available for this section [facility] Progress note Note Date & Type Note Facility Progress note No data available for this section [facility] Reason for referral (narrative) Note Date & Type Note Facility Reason for referral (narrative) No reason for referral information available [facility] Work Phone: Summary Purpose Family History No Family History Records Found Relationship Condition Age at Onset Recorded Date/T lupis aunt Anemia Unknown Asthma Unknown Arthritis Unknown History of blood clots Unknown Malignant neoplasm Unknown Diabetes mellitus Unknown Hypertension Unknown Kidney disorder Unknown Disorder of liver Unknown Osteoporosis Unknown mother Arthritis Unknown Autoimmune disease Unknown grandmother Malignant neoplasm Unknown Myocardial infarction Unknown father Myocardial infarction 50 grandfather Myocardial infarction Unknown Advance Directives No Advanced Directives Records FoundNo Advanced Directives Records FoundNo Advanced Directives Records Found Chief Complaint and Reason for Visit Chief Complaint Admit Date RE-EST/LEA PATIENT May 29, 2024 8: 46am Other symptoms and signs involving the n June 05, 2024 10:17am Reason for Visit Admit Date Immunization declined May 29, 2024 8 :46am Establishing care with new lola dover for May 29, 2024 8:46am Electronic cigarette use May 29 8:46am Suspected sleep apnea May 29, 2024 8 :46am Essential hypertension May 29, 2024 8:46am Morbid obesity with BMI of 50.0-59.9, ad ult May 29, 2024 8:46am Chief Complaint Admit Date RE-EST/LEA PATIENT May 29, 2024 8: 46am Other symptoms and signs involving the n June 05, 2024 10:17am SINUS PRESURE/BILAT EAR PAIN June 30, 2024 4:49pm CPAP FOLLOW UP September 05, 2024 7:21 am Reason for Visit Admit Date Immunization declined May 29, 2024 8 :46am Establishing care with new lola dover ntreji for May 29, 2024 8:46am Electronic cigarette use May 29 8:46am Suspected sleep apnea May 29, 2024 8 :46am Essential hypertension May 29, 2024 8:46am Morbid obesity with BMI of 50.0-59.9, ad ult May 29, 2024 8:46am Acute sinus infection June 30, 2024 4 :49pm LEESA (obstructive sleep apnea) September 05, 2024 7:21am Electronic cigarette use September 05, 2024 7:21am Essential hypertension September 05, 2024 7 :21am Morbid obesity with BMI of 50.0-59.9, ad ult September 05, 2024 7:21am Chief Complaint Admit Date RE-EST/LEA PATIENT May 29, 2024 8: 46am Other symptoms and signs involving the n June 05, 2024 10:17am SINUS PRESURE/BILAT EAR PAIN June 30, 2024 4:49pm CPAP FOLLOW UP September 05, 2024 7:21 am BP CHECK September 11, 2024 9:39 am Reason for Visit Admit Date Immunization declined May 29, 2024 8 :46am Establishing care with new doctor, lola arizmendi for May 29, 2024 8:46am Electronic cigarette use May 29 8:46am Suspected sleep apnea May 29, 2024 8 :46am Essential hypertension May 29, 2024 8:46am Morbid obesity with BMI of 50.0-59.9, ad ult May 29, 2024 8:46am Acute sinus infection June 30, 2024 4 :49pm Elevated ALT measurement September 05, 2024 7:21am LEESA (obstructive sleep apnea) September 05, 2024 7:21am Electronic cigarette use September 05, 2024 7:21am Essential hypertension September 05, 2024 7 :21am Morbid obesity with BMI of 50.0-59.9, ad ult September 05, 2024 7:21am Additional Source Comments (unrecognized sect ion and content) No Status Records FoundNo Status Records FoundNo Status Records Found INFORMATION SOURCE (unrecogn ized section and content) DATE CREATED AUTHOR 09/11/2020 [facility] DATE CREATED AUTHOR AUTHOR'S ORGANIZ ATION 04/23/2021 [facility] DATE CREATED AUTHOR AUTHOR'S ORGANIZ ATION [facility]20/20[facility] Care Teams (unrecognized sec tion and content) Team Status: Active Member Role Status Dates Dr. Lilly Cordero MD Primary Care Provider Active Team Status: Inactive Member Role Status Dates RENE Barrow Referring Provider Active S tart: May 29, 2024 End: May 29, 2024 Dr. Lilly Cordero MD Attending Provider Active Start: May 29, 2024 End: May 29, 2024 Team Status: Inactive Member Role Status Dates Dr. Lilly Cordero MD Primary Care Provider Active Start: May 29, 2024 End: May 29, 2024 Dr. Lilly Cordero MD Attending Provider Active Start: May 29, 2024 End: May 29, 2024 Dr. Lilly Cordero MD Referring Provider Active Start: May 29, 2024 End: May 29, 2024 Team Status: Active Member Role Status Dates Dr. Lilly Cordero MD Primary Care Provider Active Start: June 05, 2024 Dr. Lilly Cordero MD Attending Provider Active Start: June 05, 2024 Dr. Lilly Cordero MD Referring Provider Active Start: June 05, 2024 Goals (unrecognized section and content) Goals may be documented in a n alternate section FOR RECORDS PERTAINING TO PATIENTS WHO ARE OR HAVE BEEN ENROLLED IN A CHEMICAL DEPENDENCY/SUBSTANCEABUSE PROGRAM, SOME INFORMATION MAY BE OMITTED. This clinical summary was aggregated from multiple sources. Caution should be exercised in using it in the provision of clinical care. This summary normalizes information from multiple sources, and as a consequence, information in this document may materially change the coding, format and clinical context of patient data. In addition, data may be omitted in some cases. CLINICAL DECISIONS SHOULD BE BASED ON THE PRIMARY CLINICAL RECORDS. [facility] [employer] provides no warranty or guarantee of the accuracy or completeness of information in this document.
--- NOTE | 2025-02-04 22:10 | CT_ITS ---
PROCEDURE: ABDOMEN/PELVIS W IV CONT ONLY 02/05/2025 REASON FOR EXAM: ABDOMINAL PAIN, HEMATURIA TECHNIQUE: Procedure Code: [id number] Modality: CT Procedure: ABDOMEN/PELVIS W IV CONT ONLY Coronal and Sagittal reconstruction series were provided. isovue [id number] VOLUME: 100 mL One or more dose reduction techniques were used (e.g., Automated exposure control, adjustment of the mA and/or kV according to patient size, use of iterative reconstruction technique. RADIATION DOSE SUMMARY: CTDI Vol 13.71 mGy DLP :713.64 mGycm COMPARISON: none FINDINGS: Enlarged liver showing homogenous parenchymal attenuation showing fatty changes. No dilated intra or extra-hepatic biliary tracts. Gall bladder showing no radiodense calculi. Normal appearance of the pancreas with clear surrounding fat planes. The spleen, adrenal glands, aorta and IVC are unremarkable. Both kidneys are of average size and showing smooth outline with preserved parenchymal thickness. No renal calculi. No hydronephrosis. Under distension of the urinary bladder showing uniform mural thickening with no obvious masses. No obvious masses related to the pelvic viscera. The appendix appears unremarkable. No right iliac inflammatory changes. Mild colonic diverticulosis. No diverticulitis. The small bowel loops are unremarkable. The stomach is unremarkable. No ascites or free air. Mild mesenteric panniculitis with prominent mesenteric enlarged lymph nodes. Scanned osseous structures show no osseous destruction. Thoracolumbar spondylosis. Scanned lung bases show no obvious abnormalities. CT/Abdomen/Pelvis W IV Cont ONLY IMPRESSION: Urinary bladder minimal mural thickening. Advise clinical and laboratory correl ation to exclude the possibility of cystitis. Mild colonic diverticulosis. No diverticulitis. Fatty hepatomegaly. Reading [facility] [id number]
[2025-02-04 22:14] LABS: Red Blood Cells-Urine 50-100 SEEN /hpf (0-5); Squamous Epithelial Cells - UA 0-5 SEEN /hpf (0-5)
[2025-02-04 22:38] LABS: Anion Gap 13 (5-15); BUN 10 mg/dL (4-19); BUN/Creat Ratio 10.5 RATIO (10-20); Calcium,Total 9.1 mg/dL (7.6-11.0); Carbon Dioxide 20.9 mmol/L (21.0-32.0); Chloride 102 mmol/L (98-108); Estimated Creatinine Clearance 183.20 ml/min (50-250); Glucose 92 mg/dL (70-99); Potassium 4.3 mmol/L (3.3-5.1)
[2025-02-04 22:44] LABS: Prothrombin Time (Protime)PT. 13.9 SECONDS (11.7-14.9)
[2025-02-04 22:45] LABS: Partial Thromboplast Time 29.1 Seconds (24.1-36.2)
[2025-02-04 23:21] VITALS: BP 151/84; PULSE 70; RESP 14; O2SAT 98
--- NOTE | 2025-02-04 23:41 | ED.RN ---
CT CALLED FOR DELAY IN IMAGING READ TIME. RESPONSE "IT SHOULD BE READ SOON"
[2025-02-05 00:32] VITALS: BP 146/99; PULSE 70; RESP 14; TEMP 36.7; O2SAT 98
== END 2025-02-05 00:33 | disposition home or self-care (01) ==
PROVIDERS: Emergency Provider Emergency Medicine; PCP Internal Medicine; Visit Provider Emergency Medicine
DX: R31.9 Hematuria, unspecified (principal); I10 Essential (primary) hypertension; F17.210 Nicotine dependence, cigarettes, uncomplicated; R30.0 Dysuria
CPT/HCPCS: 74177; 80048; 81001; 85025; 85610; 85730; 99283; Q9967; A4216; J2405